=== PATIENT | female | born 1995 | race Caucasian/White ===

== ENCOUNTER 2022-09-24 12:07 | Emergency (ER) | payer OTHER, SELFPAY ==
[2022-09-24 12:17] VITALS: BP 117/70; PULSE 83; RESP 16; TEMP 36.6; O2SAT 100
--- NOTE | 2022-09-24 12:27 | ED.EAR ---
HPI - Ear Problem General Chief complaint: Ear Stated complaint: Bilateral Ear Irritation Source: patient Mode of arrival: ambulatory Limitations: no limitations History of Present Illness HPI Narrative: 27-year-old female presents to [facility] with complaints of bilateral ear pain, right is worse than left for the past 6 days. Patient reports that she then started with a headache and worsening ear pain through the night. Patient reports that she has been taking [id number] Excedrin and using a heating pad which has been helping her symptoms. Patient denies fever, body aches, chills, nausea, vomiting or diarrhea. MD Complaint: ear pain Location: bilateral Relieving factors: NDAIDs Exacerbating factors: nothing Discharge from ear: Reports no Treatment prior to arrival: none Related Data Home Medications Medication Instructions Recorded Confirmed acyclovir 400 mg tablet 400 mg PO BID 09/24/22 09/24/22 escitalopram oxalate 10 mg tablet 10 mg PO DAILY 09/24/22 09/24/22 Allergies Allergy/AdvReac Type Severity Reaction Status Date / Time No Known Allergies Allergy Verified 09/24/22 12:13 Review of Systems Constitutional: Constitutional: Denies chills, Denies fatigue, Denies fever(s) and Denies weakness ENT: Denies vertigo, Denies dizziness, Denies epistaxis, Denies nasal congestion and Denies sore throat Comments: Bilateral ear pain Cardiovascular: Cardiovascular: Denies chest pain Respiratory: Respiratory: Denies cough, Denies dyspnea and Denies wheezing Gastrointestinal: Gastrointestinal: Denies diarrhea, Denies nausea and Denies vomiting Integumentary/Breasts: Skin/Breast: Denies pruritus, Denies erythema and Denies rash Neurologic: Denies dizziness, Denies syncope and Denies headache(s) PMFSH Comments At time of signature, I agree with nursing past medical, surgical, social and family history. There is no relevant family history pertinent to the presenting complaint. Exam Const: General: healthy appearing Nutritional Appearance: well nourished Orientation/consciousness: patient oriented x3 HENMT: Head: normal to inspection Ears: external ears normal, TM's normal bilaterally and Abnormal EAC present erythema bilateral (Right is worse than left) and edema bilateral (Right is worse than left); no cerumen impaction, no excessive cerumen and no foreign body Face/Nose/Sinus: Normal external nose present Mouth: Yes Normal oral and palatal mucosa present and Yes moist mucous membranes Teeth and gingiva: dentition normal Throat: posterior oropharynx normal and uvula midline Eyes: Conjunctivae: conjunctivae normal Neck: Neck: normal visual inspection Resp: Effort & Inspection: normal respiratory effort and not labored Auscultation: clear to auscultation bilaterally, no crackles, no rales and no rhonchi Cardio: Rate: regular rate Rhythm: regular rhythm Heart sounds: no murmurs Skin: General skin exam: normal color Rashes: no rashes Neuro: Speech: normal speech Gait exam (Neuro): Normal gait present Psych: Affect: normal affect Attitude: cooperative Course Course Level of Care: Express Care Visit Vital Signs Vital signs: Vital Signs Temperature 36.6 C 09/24/22 12:17 Pulse Rate 83 09/24/22 12:17 Respiratory Rate 16 09/24/22 12:17 Blood Pressure 117/70 09/24/22 12:17 Pulse Oximetry 100 09/24/22 12:17 Oxygen Delivery Room Air 09/24/22 12:17 Temperature 36.6 C 09/24/22 12:17 Pulse Rate 83 09/24/22 12:17 Respiratory Rate 16 09/24/22 12:17 Blood Pressure 117/70 09/24/22 12:17 Pulse Oximetry 100 09/24/22 12:17 Oxygen Delivery Room Air 09/24/22 12:17 Medical Decision Making MDM Narrative Medical decision making narrative: Encourage patient also Motrin and Tylenol as needed for pain. Educated patient to use antibiotic ear drops as prescribed and keep ears clean and dry. Instructed patient to follow-up with primary care provider if s
== END 2022-09-24 12:32 | disposition home or self-care (01) ==
PROVIDERS: Emergency Provider Nurse Practitioner Family; PCP Family Medicine
DX: H60.503 Unspecified acute noninfective otitis externa, bilateral (principal); F41.9 Anxiety disorder, unspecified; F32.A Depression, unspecified; Z86.16 Personal history of COVID-19
CPT/HCPCS: 99213; G0463

== ENCOUNTER 2022-09-29 13:04 | Emergency (ER) | payer OTHER, SELFPAY ==
--- NOTE | 2022-09-29 13:07 | ED.URI ---
HPI - URI/Sore Throat General Chief Complaint: Ear Stated Complaint: EARACHE S/P DOUBLE EAR INFECTIONS/SINUS HEADACHE Time Seen by Provider: 09/29/22 13:06 Source: patient Mode of arrival: ambulatory Limitations: no limitations History of Present Illness HPI Narrative: Patient is a 27-year-old female who presents with bilateral ear pain and sinus pain since 09/18. Patient was seen at Urgent Care 09/24 and diagnosed with otitis externa. Patient has been doing ear drops daily. Patient reports ear pain and sinus pressure have just increased. Patient has not taken any other [id number] medication for symptoms. Denies fever, chills, nausea, vomiting, diarrhea, cough. Patient states she has history of strep throat and ear infections. Related Data Home Medications Medication Instructions Recorded Confirmed acyclovir 400 mg tablet 400 mg PO BID 09/24/22 09/29/22 escitalopram oxalate 10 mg tablet 2.5 mg PO DAILY 09/24/22 09/29/22 Allergies Allergy/AdvReac Type Severity Reaction Status Date / Time No Known Allergies Allergy Verified 09/29/22 13:29 Review of Systems Review of Systems: All systems reviewed & are unremarkable except as noted in HPI and below Constitutional: Constitutional: Denies body ache(s), Denies chills, Denies fatigue, Denies fever(s), Denies headache(s), Denies malaise and Denies weakness Eyes: Eyes: Denies blurry vision, Denies irritation and Denies loss of vision ENT: Reports otalgia, Denies headache(s), Denies nasal discharge, Reports sinus pain and Denies sore throat Cardiovascular: Cardiovascular: Denies chest pain, Denies irregular heart rhythm and Denies dyspnea Respiratory: Respiratory: Denies dyspnea Gastrointestinal: Gastrointestinal: Denies abdominal pain, Denies melena, Denies hematochezia, Denies diarrhea, Denies nausea and Denies vomiting Musculoskeletal: Musculoskeletal: Denies back pain, Denies myalgias and Denies arthralgias Integumentary/Breasts: Skin/Breast: Denies pruritus and Denies rash Neurologic: Denies headache(s), Denies loss of vision and Denies weakness Psychiatric: Psychiatric: Reports no additional psychiatric complaints Endocrine: Endocrine: Denies fatigue PMFSH Comments At time of signature, agree with nursing past medical, surgical, social and family history. There is no relevant family history pertinent to the presenting complaint. Exam Const: General: cooperative, healthy appearing, comfortable, no acute distress and well nourished Nutritional Appearance: well nourished Orientation/consciousness: patient oriented x3 Limitations: no limitations HENMT: Head: normal to inspection, normocephalic and atraumatic Ears: hearing grossly normal bilaterally, external ears normal, TM's normal bilaterally and EAC's normal Face/Nose/Sinus: Normal external nose present, normal facial exam and face symmetric Face and sinus: normal facial exam, face symmetric and sinus tenderness frontal and maxillary Mouth: Yes lip normal Throat: posterior oropharynx normal, tonsils normal and uvula midline Eyes: General: appearance normal, both eyes and all related structures Alignment and Position: alignment normal and position normal Periorbital: periorbital findings normal Eyelids: eyelids normal Pupils: Equal, round and reactive pupils present EOM: EOMs intact bilaterally Neck: Neck: normal visual inspection, full ROM and supple Chest: Chest palpation & inspection: normal inspection of the chest Resp: Effort & Inspection: normal respiratory effort and able to speak in complete sentences Auscultation: clear to auscultation bilaterally Cardio: Rate: regular rate Rhythm: regular rhythm Heart sounds: S1 normal heart sound present and S2 normal heart sound present GI: Inspection: normal to inspection Skin: General skin exam: normal color and no rashes or lesions noted Neuro: General: patient oriented x3 and moves all extremities Cranial nerves: Yes Equal, round and reac
[2022-09-29 13:16] VITALS: BP 114/75; PULSE 94; RESP 18; TEMP 36.6; O2SAT 100
== END 2022-09-29 14:18 | disposition home or self-care (01) ==
PROVIDERS: Emergency Provider Nurse Practitioner Family; PCP Family Medicine
DX: J01.10 Acute frontal sinusitis, unspecified (principal); Z86.16 Personal history of COVID-19; F41.9 Anxiety disorder, unspecified; F32.A Depression, unspecified
CPT/HCPCS: 99213; G0463

== ENCOUNTER 2024-02-15 09:31 | Emergency (ER) | payer BC, SELFPAY ==
--- NOTE | 2024-02-15 09:34 | ED_ITS ---
HPI - URI/Sore Throat General Chief Complaint: Upper Respiratory Infection Stated Complaint: Cough / blister on toe Time Seen by Provider: 02/15/24 09:33 Source: patient Mode of arrival: ambulatory Limitations: no limitations History of Present Illness HPI Narrative: Ericka is a 28-year-old female patient presenting to the clinic today with complaints of a cough x2 weeks and a blister on her toe as she just noticed last 1-2 days. She reports cough is nonproductive, mild shortness breath, and she has some burning in her chest. Burning is worse with the cough/taking deep breaths. Daughter was diagnosed with walking pneumonia 2 weeks ago. She denies any known fever but has had headache but is not currently complaining of a headache. Has taken Tylenol/Motrin as needed for pain. Has not taken any cough medicine. She is a nonsmoker. No history of asthma or COPD. Denies any URI symptoms. MD elicited complaint: cough and other (Blister on foot) Related Data Home Medications ?Medication ?Instructions ?Recorded ?Confirmed ?Last Taken ?Type acyclovir 400 mg tablet 400 mg PO BID 09/24/22 09/29/22 Unknown History escitalopram oxalate 10 mg tablet 2.5 mg PO DAILY 09/24/22 09/29/22 Unknown History Allergies Allergy/AdvReac Type Severity Reaction Status Date / Time No Known Allergies Allergy Verified 02/15/24 09:43 Review of Systems Review of Systems: Pertinent positives per HPI. Patient denies any fever, chills, rash, headache, visual changes, dizziness, runny nose, sore throat, shortness of breath, palpitations, nausea, vomiting, diarrhea, constipation, abdominal pain, or any urinary issues. PMFSH Comments At the time of my signature, I reviewed and agree with the nursing past medical, surgical, social, and family history. There is no relevant family history pertinent to the patient complaint. Exam Narrative: General: Well-developed, obese, in no apparent distress Head: Normocephalic, atraumatic Eyes: Pupils equally round and reactive to light bilaterally, EOM intact, sclera and conjunctive clear, no discharge, lids normal Ears: TMs intact and clear, ear canals clear, no drainage, grossly hearing normal. Nose: Nares patent, no discharge, no inflammation, no sinus tenderness. Mouth: Oral pharynx without lesions or masses, good dentition, MMM. Neck: Supple, trachea midline, no enlargement of anterior or posterior cervical nodes, no thyroid masses or goiter palpable. Cardio: Regular rate and rhythm, s1 and s2 normal, no murmur appreciated. Resp: Slightly diminished in the bases otherwise clear, no rhonchi, rales, wheezing or rubs Integumentary: [place], warm, and dry, plantar wart to the right distal midfoot- proximal to the 3rd toe Course Course Emergency Course: Portions of this record may have been created with voice recognition software. Level of Care: Express Care Visit Vital Signs Vital signs: Vital Signs Temperature 36.3 C L 02/15/24 09:42 Pulse Rate 81 02/15/24 09:42 Respiratory Rate 18 02/15/24 09:42 Blood Pressure 126/78 02/15/24 09:42 Pulse Oximetry 100 02/15/24 09:42 Oxygen Delivery Room Air 02/15/24 09:42 Temperature 36.3 C L 02/15/24 09:42 Pulse Rate 81 02/15/24 09:42 Respiratory Rate 18 02/15/24 09:42 Blood Pressure 126/78 02/15/24 09:42 Pulse Oximetry 100 02/15/24 09:42 Oxygen Delivery Room Air 02/15/24 09:42 Vital signs reviewed MDM - URI/Sore Throat MDM Narrative Medical decision making narrative: At the time of visit patient is resting comfortably on the exam table. Patient appears to be nontoxic. Plan:Wells criteria 0. Patient has had exposure to walking pneumonia. Patient reports cough, mild shortness of breath, and chest discomfort with breathing. No obvious adventitious lung sounds. Oxygen saturations 100% on room air. Will treat for a walking pneumonia/pleurisy and placed on doxycycline, albuterol inhaler, and prednisone. Recommend PCP or Podiatry evaluation for plantar wart to the right foot. Supportive measures were discussed with the patient and they voiced understanding discharge instructions and agrees to treatment plan. Return precautions reviewed Differential Diagnosis Differential diagnosis: Likely upper respiratory infection, otitis media, sinusitis, viral infection, bronchitis, influenza, pharyngitis and other (COVID) Discharge Plan Discharge Clinical Impression: Acute lower respiratory tract infection, Plantar wart of right foot Patient Disposition: Home, Self-Care Condition: Stable Instructions: Antibiotic Form, Plantar Wart (ED), Pneumonia (ED) Additional Instructions: Take prescription medications only as prescribed-doxycycline, prednisone, and albuterol inhaler Increase fluids and stay well hydrated Tylenol/motrin for pain/fever Flonase and OTC antihistamines as directed Vicks vapor rub to open sinuses Sinus rinses for congestion Cepacol spray, cough drops, throat lozenges, warm tea with honey/lemon, gargle salt water to soothe throat BRAT diet for diarrhea Clear liquids x 24 hours then advance as tolerated for nausea/vomiting Go to the ED if you develop a worsening in your condition- high fever not controlled by Tylenol or Motrin, dehydration, weakness, lethargy, shortness of breath, or chest pain. Follow up with your PCP in 3-5 days if symptoms persist. Follow-up with your PCP or insole presser for your plantar wart Patient Language: Rwandan Prescriptions: New doxycycline hyclate 100 mg capsule 100 mg PO BID 7 Days Qty: 14 0RF prednisone 20 mg tablet 40 mg PO DAILY 5 Days Qty: 10 0RF albuterol sulfate 90 mcg/actuation HFA aerosol inhaler 2 puff inhalation Q4-6H PRN (Reason: shortness of breath or wheezing) 30 Days Qty: 8.5 0RF No Action acyclovir 400 mg tablet 400 mg PO BID escitalopram oxalate 10 mg tablet 2.5 mg PO DAILY Follow-up/Referrals: UNKNOWN,DOCTOR [Primary Care Provider] - Time of Disposition: 09:52 Quality NIHSS Nursing Documentation ED NIHSS nursing documentation: reviewed/agree
[2024-02-15 09:42] VITALS: BP 126/78; PULSE 81; RESP 18; TEMP 36.3; O2SAT 100
== END 2024-02-15 09:58 | disposition home or self-care (01) ==
PROVIDERS: Emergency Provider Nurse Practitioner Family
DX: J22 Unspecified acute lower respiratory infection (principal); B07.0 Plantar wart
CPT/HCPCS: 99213; G0463

== ENCOUNTER 2024-03-21 16:57 | Emergency (ER) | payer BC, MEDICAID, SELFPAY ==
--- NOTE | ~2024-03-21 | XR_ITS ---
CHEST RADIOGRAPH, PA AND LATERAL CLINICAL HISTORY: cough,productive . COMPARISON: None available TECHNIQUE: PA and lateral views of the chest. FINDINGS The cardiomediastinal silhouette is unremarkable. The lungs are clear. Visualized osseous structures and soft tissues are unremarkable. IMPRESSION: No focal infiltrate or effusion. Reviewed, dictated and finalized at location A. FACTURING PROJECT ENGINEER
--- OUTSIDE RECORDS SUMMARY | 2024-03-21 17:00 | XMS_ITS | Encounter Summary ---
Author Organization [facility] Address [address] [place] [address] Care Team Providers Care Disc Pad Knockout Worker Name Role Phone Sandra Zuniga MD Primary Care Provider [phone] Phuong Dunne NP Primary Care Provider [phone] Encounter Details Date Type Department Care Team (Late st Contact Info) Description 07/04/2023 Poken Message Enc [facility] Medical Group Family & Internal Medicine [facility] [id number] [place] [phone] Phuong Dunne NP [address] [place] [address] Ear irrigation Social History Tobacco Use Types Packs/Day Years Used Date Smoking Tobacco: Never Smokeless Tobacco: Never Alcohol Use Standard Drinks/Week Comments Yes 0 (1 standard drink = 0.6 oz pur e alcohol) A few drinks every few months PHQ-2 Answer Date Recorded Patient Health Questionnaire-2 Score 0 04/12/2023 Comments No Sex and Gender Information Value Date Recorded Sex Assigned at Female 03/17/2024 8:21 AM HEAVY EQUIPMENT FIELD MECHANIC Legal Sex Female 7:14 PM CDT Gender Identity Not on file Sexual Orientation Not on file documented as of this encounter Plan of Treatment Not on file documented as of this encounter Visit Diagnoses Not on filedocumented in this encounter Additional Health Concerns Infection Onset Date Last Indicated Resolved Time COVID-19 Rule Out 03/03/2024 03/03/2024 03/03/2024 4:32 PM HEAVY EQUIPMENT FIELD MECHANIC Influenza - Seasonal 03/03/2024 03/03/2024 025 12:32 AM HEAVY EQUIPMENT FIELD MECHANIC COVID-19 Rule Out 03/17/2024 03/17/2024 03/17/2024 9:13 AM HEAVY EQUIPMENT FIELD MECHANIC Assessment Noted Time PHQ-9 Depression Total Score: 7 09/05/19 3:09 PM CDT documented as of this encounter Care Teams Disc Pad Knockout Worker Relationship Specialty [place] [id number] [place] [address] PCP - General FAMILY PRACTICE 01/14/21 10/04/23 [place] [address] [place] [address] PCP - General Nurse Practitioner Family 10/05/23 documented as of this encounter
--- OUTSIDE RECORDS SUMMARY | 2024-03-21 17:00 | XMS_ITS | Encounter Summary ---
Author Organization [facility] Address [address] [place] [address] Care Team Providers Care Crack Off Person Name Role Phone Sandra Zuniga MD Primary Care Provider [phone] Phuong Dunne NP Primary Care Provider [phone] Encounter Details Date Type Department Care Team (Late st Contact Info) Description 06/14/2023 [employer] Message Enc [facility] Medical Group Family & Internal Medicine [facility] [address] [place] [address] Ashley Roa, CLINICAL TRIALS NURSE [address] [address] Strep culture Social History Tobacco Use Types Packs/Day Years Used Date Smoking Tobacco: Never Smokeless Tobacco: Never Alcohol Use Standard Drinks/Week Comments Yes 0 (1 standard drink = 0.6 oz pur e alcohol) A few drinks every few months PHQ-2 Answer Date Recorded Patient Health Questionnaire-2 Score 0 04/12/2023 Comments No Sex and Gender Information Value Date Recorded Sex Assigned at Female 03/17/2024 8:21 AM SCRAP SEPARATOR Legal Sex Female 7:14 PM CDT Gender Identity Not on file Sexual Orientation Not on file documented as of this encounter Plan of Treatment Not on file documented as of this encounter Visit Diagnoses Not on filedocumented in this encounter Additional Health Concerns Infection Onset Date Last Indicated Resolved Time COVID-19 Rule Out 03/03/2024 03/03/2024 03/03/2024 4:32 PM SCRAP SEPARATOR Influenza - Seasonal 03/03/2024 03/03/2024 025 12:32 AM SCRAP SEPARATOR COVID-19 Rule Out 03/17/2024 03/17/2024 03/17/2024 9:13 AM SCRAP SEPARATOR Assessment Noted Time PHQ-9 Depression Total Score: 7 09/05/19 3:09 PM CDT documented as of this encounter Care Teams Crack Off Person Relationship Specialty [place] [address] [place] [address] PCP - General FAMILY PRACTICE 01/14/21 10/04/23 [place] [address] [address] PCP - General Nurse Practitioner Family 10/05/23 documented as of this encounter
--- OUTSIDE RECORDS SUMMARY | 2024-03-21 17:00 | XMS_ITS | Encounter Summary ---
Author Organization [facility] Address [address] [place] [address] Care Team Providers Care Foreign Banknote Teller Name Role Phone Sandra Zuniga MD Primary Care Provider [phone] Phuong Dunne NP Primary Care Provider [phone] Encounter Details Date Type Department Care Team (Late st Contact Info) Description 06/19/2022 Border[employer] Message Enc [facility] Medical Group Family & Internal Medicine [facility] [id number] [place] [phone] Sandra Zuniga MD [address] [place] [address]. [address] [place] [address] Headaches Social History Tobacco Use Types Packs/Day Years Used Date Smoking Tobacco: Never Smokeless Tobacco: Never Alcohol Use Standard Drinks/Week Comments Yes 0 (1 standard drink = 0.6 oz pur e alcohol) once per month per patient. PHQ-2 Answer Date Recorded Patient Health Questionnaire-2 Score 0 02/09/2022 Comments No Sex and Gender Information Value Date Recorded Sex Assigned at Female 03/17/2024 8:21 AM CORONARY CLINICAL SPECIALIST Legal Sex Female 7:14 PM CDT Gender Identity Not on file Sexual Orientation Not on file documented as of this encounter Plan of Treatment Not on file documented as of this encounter Visit Diagnoses Not on filedocumented in this encounter Additional Health Concerns Infection Onset Date Last Indicated Resolved Time COVID-19 Rule Out 03/03/2024 03/03/2024 03/03/2024 4:32 PM CORONARY CLINICAL SPECIALIST Influenza - Seasonal 03/03/2024 03/03/2024 025 12:32 AM CORONARY CLINICAL SPECIALIST COVID-19 Rule Out 03/17/2024 03/17/2024 03/17/2024 9:13 AM CORONARY CLINICAL SPECIALIST Assessment Noted Time PHQ-9 Depression Total Score: 2 02/23/19 11:36 AM CORONARY CLINICAL SPECIALIST documented as of this encounter Care Teams Foreign Banknote Teller Relationship Specialty [place] [address] [place] [address] PCP - General FAMILY PRACTICE 01/14/21 10/04/23 [place] [address] [place] [address] PCP - General Nurse Practitioner Family 10/05/23 documented as of this encounter
--- OUTSIDE RECORDS SUMMARY | 2024-03-21 17:00 | XMS_ITS | Clinical Summary ---
Author Organization [facility] Address [address] [place] [address] Care Team Providers Care Physical Therapy Asst Name Role Phone Phuong Dunne NP Primary Care Provider + [phone] Allergies No known active allergies Medications valACYclovir (VALTREX) 1 g tablet 08/02/2023 Active escitalopram (LEXAPRO) 10 MG tabletIndicatio ns:Other depression Take 1 tablet (10 mg total) by mouth daily. 90 tablet 3 10/11/2023 Active propranolol (INDERAL) 20 MG tabletIndicatio ns:Anxiety Take 1 tablet (20 mg total) by mouth 3 (three) times daily. 90 tablet 11/29/2023 Active albuterol sulfate HFA 108 (90 Base) MCG/ACT inhaler Inhale 2 puffs into the lungs every 4 (four) hours as needed. 02/15/2024 Active fluticasone propionate (FLONASE) 50 MCG/ACT nasal sprayIndication s:Viral URI 2 sprays by Nasal route daily for 30 days. 2 puffs each nostril twice a day for 3 days, then 2 puffs each nostril daily 18.2 mL 1 03/17/2024 04/17/19 25 Active oseltamivir (TAMIFLU) 75 MG capsuleIndicati ons:Influenza A Take 1 capsule (75 mg total) by mouth 2 (two) times daily for 5 days. 10 capsule 03/03/2024 03/08/19 25 Active Problems Problem Noted Date Diagnosed Date Genital herpes simplex, unspecified site 024 History of cardiac radiofrequency ablation (RFA) 10/17/2023 Intractable episodic tension-type headache 10/12 History of supraventricular tachycardia 05/01/19 18 Obesity (BMI 30.0-34.9) 04/30/2017 Anxiety with depression 03/19/2017 Dysmenorrhea 01/21/2016 PMS (premenstrual syndrome) 01/21/2016 Anxiety 01/01/2015 Migraine headache 01/01/2015 SVT (supraventricular tachycardia) ([facility]) 07/21/2010 Resolved Problems Problem Noted Date Diagnosed Date Resolved Date Encounter for preventive health examination 01/01/2015 04/16/2023 Encounter to establish care with new doctor 01/01/2015 04/16/2023 Encounters Date Type Department Care Team Description 03/17/2024 10:20 AM ACCOUNT RECEIVABLE CLERK Office Visit [facility] [address] [phone] Adelso Hurt PA URI/ENT Symptoms (Pt c/o JAQUAN ear pain with right worse, sinus drainage and congestion, cough. Pt symptoms started Sat and is just getting over the flu from 03/03) 03/17/2024 Travel 03/03/2024 4:00 PM ACCOUNT RECEIVABLE CLERK Office Visit [facility] [address] [phone] Leela Arambula PA Sore Throat (Headache, coughing, body aches, chills/sweats-x 2-3 days) 03/03/2024 Travel from Last 3 Months Immunizations Name Administration Dates Next Due Dtap (Acel-Immune) 07/29/2001, 8,1996,1996,1996 Dtap (Generic) 07/29/2001, 8,1996,1996,1996 Fluzone Adult - >Age 3 (Pref illed Syringe) 01/14/2021(Deferred: Patient Refused) Hepatitis B Pediatric 1996,1996,03/1996 Hib Vaccine, Prp-D 12/16/1997, 7,1996,1996 MMR (Generic) 07/29/2001,07/02/1997 Opv 07/29/2001, 8,1996,1996,1996 Td (Tenivac) preservative free 1996 Varicella Vaccine 06/04/2001 Family History Medical History Relation Comments Alcohol Abuse Father Hypertension Father Mental Health Father Neurological Disease Mother Occipital N euralgia Relation Status Comments Father Alive Mother Alive Social History Tobacco Use Types Packs/Day Years Used Date Smoking Tobacco: Never Smokeless Tobacco: Never Tobacco Cessation:Counseling Given: No Alcohol Use Standard Drinks/Week Comments Yes 0 (1 standard drink = 0.6 oz pur e alcohol) A few drinks every few months PHQ-2 Answer Date Recorded Patient Health Questionnaire-2 Score 0 03/03/2024 Comments No Sex and Gender Information Value Date Recorded Sex Assigned at Female 03/17/2024 8:21 AM ACCOUNT RECEIVABLE CLERK Legal Sex Female 7:14 PM CDT Gender Identity Not on file Sexual Orientation Not on file Last Filed Vital Signs Vital Sign Reading Time Taken Comments Blood Pressure 125/89 03/17/2024 8:45 AM ACCOUNT RECEIVABLE CLERK Pulse 96 03/17/2024 8:45 AM ACCOUNT RECEIVABLE CLERK Temperature 36.9 C (98.5 F) 03/17/2024 8:45 AM ACCOUNT RECEIVABLE CLERK Respiratory Rate 18 03/17/2024 8:45 AM ACCOUNT RECEIVABLE CLERK Oxygen Saturation 100% 03/17/2024 8:45 AM ACCOUNT RECEIVABLE CLERK Inhaled Oxygen Concentration - - Weight 93 kg (205 lb) 03/17/2024 8:45 AM ACCOUNT RECEIVABLE CLERK Height 157.5 cm (5' 2 ) 03/17/2024 8:45 AM ACCOUNT RECEIVABLE CLERK Body Mass Index 37.49 03/17/2024 8:45 AM ACCOUNT RECEIVABLE CLERK Plan of Treatment Health Maintenance Due Date Last Done Comments DTaP, Tdap and Td Vaccines (6 - Tdap) 06/14/2007 07/29/2001, 07/29/2001, 12/16/1997, Additional history exists Cervical Cancer Screening Pap Smear (Age 21 to 29) Every 3 Years 10/17/2020 10/17/2017 Annual Physical 03/05/2021 03/05/2020 COVID-19 Vaccine ( season) 2023 Influenza Adult (#1) 2023 Cervical Cancer Screening 08/11/2025 Po stponed from 10/17/2020 (Going to Outside Clinic) Hepatitis B Vaccines Completed 1996, 1996, 1996 Hepatitis C Completed 01/19/2016 Chlamydia Screening Females ages 16-24 Discontinued 10/17/2017 PHQ-2 (Physician Nathrop) Completed 03/03/2024 HPV Vaccines Aged Out No longer eligi ble based on patient's age to complete this topic Meningococcal B Vaccine Aged Out No l onger eligible based on patient's age to complete this topic Meningococcal Vaccine Aged Out No hafsa aristides eligible based on patient's age to complete this topic Pneumococcal Vaccine: Pediatrics (0 to 5 Years) and At-Risk Patients (6 to 64 Years) Aged Out No longer eligible based on patient's age to complete this topic RSV Immunizations Under 20 Months Aged Out No longer eligible based on patient's age to complete this topic Procedures Procedure Name Priority Date/Time Associated Diagnosis Comments CULTURE STREP A Routine 03/17/2024 9:05 AM ACCOUNT RECEIVABLE CLERK Sore throat CORONAVIRUS (COVID-19) INFLUENZA A & B ANTIGEN IA PANEL Routine 03/17/2024 Suspected COVID-19 virus infection STREP A RAPID Routine 03/17/2024 Sore throat STREP A RAPID Routine 03/03/2024 Sore throat CORONAVIRUS (COVID-19) INFLUENZA A & B ANTIGEN IA PANEL Routine 03/03/2024 Suspected COVID-19 virus infection from Last 3 Months Results * CULTURE STREP A (03/17/2024 9:05 AM ACCOUNT RECEIVABLE CLERK) THROAT CULTURE GROUP A STREP [facility] [place] Comment: CULTURE, THROAT, SPECIAL W/GRP A STREP SUSCEPT. Micro Number: [id number] Test Status: Final Specimen Source: Not given Specimen Quality: Adequate Result: No oropharyngeal pathogens recovered. STRUCTURE OF ANTERIOR PORTION OF NECK / Unknown 03/17/2024 9:05 AM ACCOUNT RECEIVABLE CLERK 03/18/2024 1:42 AM ACCOUNT RECEIVABLE CLERK Narrative Resulting Agency Comment Performing Organization Information: Site ID: [email or web address] Name: [email or web address] Address: [address] [place] [address] Director: Arline Gonzalez Adelso [facility] MICROBIOLOG[facility] - GENERAL ORDERAB LES Final Result [facility] [place], [place] [address] [place] [address], * CORONAVIRUS (COVID-19) INFLUENZA A & B ANTIGEN IA PANEL (03/17/2024) Only the most recent of2 resultswithin the time period is included. CORONAVIRUS ANTIGEN IA NEGATIVE NEGATIVE [id number], [place] INFLUENZA A NEGATIVE NEGATIVE [id number], [place] INFLUENZA B NEGATIVE NEGATIVE [id number] Internal Control: VALID VALID [id number], [place] NASAL STRUCTURE / Unknown 03/17/2024 us Adelso [facility] MICROBIOLOGY - GENERAL ORDERAB LES Final Result Performing Organization Address City/[facility]/ZIP Co de Phone Number [phone], [place] [address] [place] [address], * STREP A RAPID (03/17/2024) Only the most recent of2 resultswithin the time period is included. RAPID STREP TEST NEGATIVE NEGATIVE [id number], [place] Internal Control: VALID VALID [id number] STRUCTURE OF ANTERIOR PORTION OF NECK / Unknown 03/17/2024 Adelso [facility] MICROBIOLOGY - GENERAL ORDERAB LES Final Result [id number], [place] [address] [place] [address], from Last 3 Months Insurance [facility] Care Teams Physical Therapy Asst Relationship Specialty [place] [address] [place] [address] PCP - General Nurse Practitioner Family 10/05/23
--- OUTSIDE RECORDS SUMMARY | 2024-03-21 17:00 | XMS_ITS | Encounter Summary ---
Author Organization [facility] Address [address] [place] [address] Care Team Providers Care Patient Registration Clerk Name Role Phone Tonia Cross DROP WIRE BUILDER Primary Care Provider Sandra Carvalho MD Primary Care Provider [phone] Phuong Dunne DROP WIRE BUILDER Primary Care Provider + [phone] Encounter Details Date Type Department Care Team (Late st Contact Info) Description 10/27/2020 NowThis News Message [facility] Patient Accounts [address] [place] [address] [facility] Provider Financial Assistance Application Social History Tobacco Use Types Packs/Day Years Used Date Smoking Tobacco: Never Smokeless Tobacco: Never Alcohol Use Standard Drinks/Week Comments Yes 0 (1 standard drink = 0.6 oz pur e alcohol) once per month per patient. PHQ-2 Answer Date Recorded PHQ-2 Score - If the patient scores above 3, please move on to questions 3-9 1 03/05/2020 Comments No Sex and Gender Information Value Date Recorded Sex Assigned at Female 03/17/2024 8:21 AM VEHICLE REFINISHER Legal Sex Female 7:14 PM CDT Gender Identity Not on file Sexual Orientation Not on file documented as of this encounter Plan of Treatment Not on file documented as of this encounter Visit Diagnoses Not on filedocumented in this encounter Additional Health Concerns Infection Onset Date Last Indicated Resolved Time COVID-19 Rule Out 03/03/2024 03/03/2024 03/03/2024 4:32 PM VEHICLE REFINISHER Influenza - Seasonal 03/03/2024 03/03/2024 025 12:32 AM VEHICLE REFINISHER COVID-19 Rule Out 03/17/2024 03/17/2024 03/17/2024 9:13 AM VEHICLE REFINISHER documented as of this encounter Care Teams Patient Registration Clerk Relationship Specialty Start Date End Date Tonia Cross NP PCP - General NURSE PRACTITIONER 03/05/20 01/13/21 [place] [address] [place] [address] PCP - General FAMILY PRACTICE 01/14/21 10/04/23 [place] [address] [address] [place] [address] PCP - General Nurse Practitioner Family 10/05/23 documented as of this encounter
--- OUTSIDE RECORDS SUMMARY | 2024-03-21 17:00 | XMS_ITS | Clinical Summary ---
Author Organization [employer] [address] [place] [address] [place] [phone] Care Team Providers Care Plasma Processing Centrifuge Operator Name Role Phone Fercho Gomez DO Primary Care Provider [phone] Allergies No known active allergies Medications escitalopram oxalate (LEXAPRO) 10 mg tabletIndication s:Anxiety with depression Take 1 tab by mouth daily 90 Tablet 3 04/02/2019 Active Active Problems Problem Noted Date Diagnosed Date History of supraventricular tachycardia 05/01/19 18 Obesity (BMI 30.0-34.9) 04/30/2017 Anxiety with depression 03/19/2017 Immunizations Immunization Administration Dates Next Due (INFANRIX)(6 WKS-6 YRS) DIPT HERIA, TETANUS TOXOIDS, AND ACCELLULAR PERTUSSIS VACCINE (DTAP), 0.5 ML IM 07/29/2001,12/16/1997,1996,10/24,1996 (M-M-R II/PRIORIX)(12 MO UP) MEASLES, MUMPS AND RUBELLA VIRUS VACCINE, 0.5 ML IM/SUBCUT 07/29/2001,07/02/1997 (RECOMBIVAX HB/ENGERIX-B)(0- 19 YRS) HEPATITIS B VACCINE 5 MCG/0.5 ML OR 10 MCG/0.5 ML PED OR ADOL 3 DOSE (PF), IM 1996,1996,1996 (VARIVAX)(12 MOS UP)VARICELL A VIRUS VACCINE (PF) 0.5 ML, SUB CUT 06/04/2001 Hemophilus influenza b vacci ne (Hib), PRP-D conjugate, for booster use only, intramuscular use 12/16/1997,1996,1996,08/14 Poliovirus Vaccine Live Oral 07/29/2001, 12/16/1997,1996,10/24,1996 Family History Medical History Relation Name Comments Depression Father Hypertension Father Migraines Mother Relation Name Status Comments Father Alive Mother Alive Social History Tobacco Use Types Packs/Day Years Used Date Smoking Tobacco: Never Smokeless Tobacco: Never Alcohol Use Standard Drinks/Week Comments No 0 (1 standard drink = 0.6 oz pur e alcohol) Comments No Sex and Gender Information Value Date Recorded Sex Assigned at Not on file Legal Sex Female 1:58 PM SENIOR DATA MINING ANALYST Gender Identity Not on file Sexual Orientation Not on file Last Filed Vital Signs Vital Sign Reading Time Taken Comments Blood Pressure 112/64 04/02/2019 10:29 AM SENIOR DATA MINING ANALYST Pulse 85 04/02/2019 10:29 AM SENIOR DATA MINING ANALYST Temperature 36.2 C (97.2 F) 04/02/2019 10:29 AM SENIOR DATA MINING ANALYST Respiratory Rate - - Oxygen Saturation 99% 04/02/2019 10:29 AM SENIOR DATA MINING ANALYST Inhaled Oxygen Concentration - - Weight 78.9 kg (174 lb) 04/02/2019 10:29 AM SENIOR DATA MINING ANALYST Height 157.5 cm (5' 2 ) 04/02/2019 10:29 AM SENIOR DATA MINING ANALYST Body Mass Index 31.83 04/02/2019 10:29 AM SENIOR DATA MINING ANALYST Plan of Treatment Health Maintenance Due Date Last Done Comments DTAP/TDAP/TD VACCINES (6 - Tdap) 06/14/2007 07/29/2001, 12/16/1997, 1996, Additional history exists CERVICAL CANCER SCREENING 2017 INFLUENZA VACCINE (#1) 2023 04/02/2019 Preventative Visit- Commercial 02/13/2024 04/02/2019, 04/30/2017, 01/22/2017, Additional history exists HEPATITIS B VACCINES Completed 1996, 1996, 1996 HPV VACCINES Aged Out No longer eligi ble based on patient's age to complete this topic Insurance [facility] [employer] HMO Care Teams Plasma Processing Centrifuge Operator Relationship Specialty Start Date End Date Fercho Gomez DO [address] [place] [address] [place] [address] PCP - General Internal Medicine 03/16/17
--- OUTSIDE RECORDS SUMMARY | 2024-03-21 17:00 | XMS_ITS | Referral Summary ---
Author Organization [facility] Address [address] [place] [address] Care Team Providers Care Topology Professor Name Role Phone MigelFercho perez Primary Care Provider [phone] Allergies No known active allergies Medications escitalopram (LEXAPRO) 10 mg tablet Take 1 tablet (10 mg total) by mouth daily 10/19/2021 Active acyclovir (ZOVIRAX) 400 mg tablet Take 1 tablet (400 mg total) by mouth 2 (two) times a day 08/20/2021 Active naproxen (NAPROSYN) 500 mg tabletIndication s:Anti-inflammat ory Take 1 tablet (500 mg total) by mouth 2 (two) times a day with meals 60 tablet 2 11/21/2021 Active Active Problems Problem Noted Date Diagnosed Date Intractable episodic tension-type headache 10/12 Social History Tobacco Use Types Packs/Day Years Used Date Smoking Tobacco: Never Smokeless Tobacco: Never Tobacco Cessation:Counseling Given: Not Answered Alcohol Use Standard Drinks/Week Comments No 0 (1 standard drink = 0.6 oz pur e alcohol) Personal Safety Answer Date Recorded Getting School Help Needed Not on file 04/08 Comments Unknown Sex and Gender Information Value Date Recorded Sex Assigned at Not on file Legal Sex Female 7:24 PM ETHANOL MAINTENANCE MECHANIC Gender Identity Not on file Sexual Orientation Not on file Last Filed Vital Signs Vital Sign Reading Time Taken Comments Blood Pressure 100/70 11/21/2021 10:15 AM CDT Pulse - - Temperature - - Respiratory Rate 16 10/12/2017 11:28 AM CDT Oxygen Saturation - - Inhaled Oxygen Concentration - - Weight 88 kg (194 lb) 12/26/2021 10:21 AM ETHANOL MAINTENANCE MECHANIC Height 157.5 cm (5' 2 ) 12/26/2021 10:21 AM ETHANOL MAINTENANCE MECHANIC Body Mass Index 35.48 12/26/2021 10:21 AM ETHANOL MAINTENANCE MECHANIC Plan of Treatment Not on file Insurance [facility] [employer] [place] Care Teams Topology Professor Relationship Specialty Start Date End Date Fercho Gomez DO PCP - General Internal Medicine 09/12/17
--- OUTSIDE RECORDS SUMMARY | 2024-03-21 17:00 | XMS_ITS | Patient Health Summary ---
Author Organization [facility] Address [address] [address] Care Team Providers Care Vinegar Maker Name Role Phone Mary Alice Garcia MD Primary Care Provider Note from [facility] [place],non-owned Affiliates and Associated Physician Practices is amultiple site organization consisting of ambulatory clinics and hospital sitesin [place], [place], [place] and [place]. This disclosure is being madepursuant to the Care Everywhere program and may not contain all information available regarding this patient. Last updated 17.[facility] Allergies No known active allergies Medications * Be aware that medications may not be up to date on this document. Alwaysverify current medications with the patient. * MV-Min-Fe Fum-FA-DHA ( 1 PO) * escitalopram (LEXAPRO) 10 MG tablet(Started 08/20/2018) TAKE ONE-HALF TABLET BY MOUTH DAILY FOR 2 WEEKS. IF TOLERATING WITHOUT SIDE EFFECTS, INCREASE TO ONE TABLET BY MOUTH DAILY. Active Problems Problem Noted Date Diagnosed Date PMS (premenstrual syndrome) 01/21/2016 Dysmenorrhea 01/21/2016 SVT (supraventricular tachycardia) 07/21/2010 Resolved Problems Problem Noted Date Diagnosed Date Resolved Date Rubella non-immune status, antepartum 10/19/2017 01/30/2018 Immunizations * DTaP VACCINE IM (6wk-6yrs)(Given 07/29/2001, 12/16/1997, 1996, 1996, 1996) * HEP B VACCINE, PED/ADOL(Given 1996, 1996, 1996) * HIB BOOSTER(Given 12/16/1997, 1996, 1996, 1996) * MMR(Given 07/29/2001, 07/02/1997) * POLIO OPV(Given 07/29/2001, 12/16/1997, 1996, 1996, 1996) * VARICELLA(Given 06/04/2001) Social History Tobacco Use Types Packs/Day Years Used Date Smoking Tobacco: Never Smokeless Tobacco: Never Alcohol Use Standard Drinks/Week Comments No 0 (1 standard drink = 0.6 oz pur e alcohol) Sex and Gender Information Value Date Recorded Sex Assigned at Not on file Gender Identity Not on file Sexual Orientation Not on file Last Filed Vital Signs Vital Sign Reading Time Taken Comments Blood Pressure 110/70 12/02/2018 10:58 AM CDT Pulse 77 12/02/2018 10:58 AM CDT Temperature 36.6 C (97.8 F) 12/02/2018 10:58 AM CDT Respiratory Rate 18 12/02/2018 10:58 AM CDT Oxygen Saturation 99% 12/02/2018 10:58 AM CDT Inhaled Oxygen Concentration - - Weight 74.8 kg (165 lb) 07/07/2018 5:00 PM CDT Height 157.5 cm (5' 2 ) 07/07/2018 5:00 PM CDT Body Mass Index 30.18 07/07/2018 5:00 PM CDT Procedures * STREP A SCREEN - POINT OF CARE (AMB) STL(Performed 10/25/2019) Performed for Acute maxillary sinusitis, recurrence not specified * STREP A SCREEN - POINT OF CARE (AMB) STL(Performed 12/02/2018) Performed for Sore throat * STREP A SCREEN - POCT (IP) URGENT CARE(Performed 07/07/2018) Performed for Streptococcal pharyngitis * FIRST TRI NUCHAL TRANSLUCENCY W:SEQ SCREEN(Performed 11/20/2017) Performed for Encounter for supervision of normal first in first trimester (HCC), 6 weeksgestation of (HCC), Screening examination for venereal disease * PROFILE I W/ HBSAG(Performed 10/17/2017) Performed for Encounter for supervision of normal first in first trimester ([facility]), 6 weeksgestation of ([facility]), Screening examination for venereal disease * HIV-1 HIV-2 ANTIGEN/ANTIBODY W RFLX(Performed 10/17/2017) Performed for Encounter for supervision of normal first in first trimester ([facility]), 6 weeksgestation of ([facility]), Screening examination for venereal disease * HEMOGLOBIN ELECTROPHORESIS(Performed 10/17/2017) Performed for Encounter for supervision of normal first in first trimester ([facility]), 6 weeksgestation of ([facility]), Screening examination for venereal disease * CYSTIC FIBROSIS MUTATION PANEL(Performed 10/17/2017) Performed for Encounter for supervision of normal first in first trimester ([facility]), 6 weeksgestation of ([facility]), Screening examination for venereal disease * PAP IG LB CT+NG+TV RFLX HPV ASCU(Performed 10/17/2017) Performed for Encounter for supervision of normal first in first trimester ([facility]), 6 weeksgestation of ([facility]), Screening examination for venereal disease * DRUG ABUSE URINE PANEL 7(Performed 10/17/2017) Performed for Encounter for supervision of normal first in first trimester ([facility]), 6 weeksgestation of ([facility]), Screening examination for venereal disease * CULTURE URINE(Performed 10/17/2017) Performed for Encounter for supervision of normal first in first trimester ([facility]), 6 weeksgestation of ([facility]), Screening examination for venereal disease * HCG URINE QUALITATIVE - POINT OF CARE (AMB) STL(Performed 10/17/2017) Performed for Encounter for supervision of normal first in first trimester ([facility]), 6 weeksgestation of ([facility]), Screening examination for venereal disease * CBC W AUTO DIFFERENTIAL(Performed 03/13/2017) Performed for Pelvic pain * TSH HI LOW REFLEX FREE T4(Performed 03/13/2017) Performed for Pelvic pain * US PELVIS W TRANSVAG NON OB(Performed 03/13/2017) Performed for Pelvic pain * VAGINITIS PLUS (BV CA CT NG TRICH)(Performed 01/22/2017) Performed for Well woman exam, Screening for venereal disease (VD) * STREP A SCREEN - POINT OF CARE (AMB) STL(Performed 01/09/2017) Performed for Strep throat * CHLAMYDIA + GC + TRICH DNA AMPL(Performed 01/19/2016) Performed for Well woman exam with routine gynecological exam, Screening examination for venereal disease * HERPES SIMPLEX 1+2 ANTIBODY IGM IFA(Performed 01/19/2016) Performed for Well woman exam with routine gynecological exam, Screening examination for venereal disease * HERPES SIMPLEX 1+2 AB IGG SPEC(Performed 01/19/2016) Performed for Well woman exam with routine gynecological exam, Screening examination for venereal disease * HEPATITIS SCREEN ACUTE(Performed 01/19/2016) Performed for Well woman exam with routine gynecological exam, Screening examination for venereal disease * RPR W REFLEX CONFIRM(Performed 01/19/2016) Performed for Well woman exam with routine gynecological exam, Screening examination for venereal disease * HIV-1 HIV-2 ANTIGEN/ANTIBODY W RFLX(Performed 01/19/2016) Performed for Well woman exam with routine gynecological exam, Screening examination for venereal disease * ECHO CONSULT - PEDIATRIC(Performed 04/19/2011) Performed for SVT (supraventricular tachycardia) * EKG 15-LEAD(Performed 04/19/2011) Performed for SVT (supraventricular tachycardia) * CARDIAC PROCEDURE ORDER(Performed 09/21/2010) * CARDIAC EKG ORDER(Performed 09/21/2010) * CALCIUM BLOOD(Performed 09/16/2010) * TYPE SCRN XMATCH RBC X1(Performed 09/16/2010) Performed for SVT (supraventricular tachycardia) * BASIC METABOLIC PANEL (CALCIUM TOTAL)(Performed 09/16/2010) Performed for SVT (supraventricular tachycardia) * CBC W AUTO DIFFERENTIAL(Performed 09/16/2010) Performed for SVT (supraventricular tachycardia) * CARDIAC CATH CONSULT(Performed 09/16/2010) Performed for SVT (supraventricular tachycardia) * HCG URINE QUALITATIVE - POINT OF CARE(Performed 09/16/2010) * EKG 15-LEAD(Performed 09/16/2010) Performed for SVT (supraventricular tachycardia) * EKG 15-LEAD(Performed 07/22/2010) Performed for SVT (supraventricular tachycardia) * ECHO CONSULT - PEDIATRIC(Performed 07/21/2010) Performed for SVT (supraventricular tachycardia) Results * STREP A SCREEN - POINT OF CARE (AMB) STL (10/25/2019 12:13 PM CDT) Only the most recent of3 resultswithin the time period is included. Strep A Rapid POCT Negative Negative Strep A Internal Control Present Lot # [id number] Expiration Date 12/12/2020 Throat ENTIRE THROAT (SURFACE REGION OF NECK) / Unknown 10/25/2019 12:13 PM CDT Funmilayo Varela [employer] [facility] - POIN T OF CARE ORDERABLES * (ABNORMAL) STREP A SCREEN - POCT (IP) URGENT CARE (07/07/2018 4:59 PM CDT) Strep A Rapid POCT Positive(A ) Negative [facility] POCT TESTING QC Verified Yes Yes [facility] POC T TESTING Throat ENTIRE THROAT (SURFACE REGION OF NECK) / Unknown 07/07/2018 4:59 PM CDT Renee Agrawal [employer] [facility] - POI NT OF CARE ORDERABLES Performing Organization Address City/State/[facility] Co de Phone Number [facility] POCT TESTING [address] [facility] [employer] [address] * FIRST TRI NUCHAL TRANSLUCENCY W:SEQ SCREEN (11/20/2017 8:50 AM CDT) Anatomical Region Laterality Modality Other 11/20/2017 8:50 AM CDT Narrative 11/20/2017 12:34 PM CDT [facility] FAX: Pat. Name: ERICKA SUÁREZ Linda Briseno. No: [id number] Study Date: 11/20/2017 8:50am , Age: 6 1995, 22 Pregnancies: 1, Para 0000 Height: 62 in Weight: 170 lb LMP: 09/01/2017 GA by LMP: 11w3d GA by US: 11w3d RAMSEY: 06/08/2018 GA Selected: 11w3d (LMP) RAMSEY: 06/08/2018 Referring MD: Aleksandra Jenkins MD Assistant Dean: Claire Jonas RDMS BMI: 31.09 Hist/Ind: NT MEASUREMENTS & AGE GROWTH EVALUATION Measurement GA Range Srce %for GA Ratios ----- ---- ------- CRL 4.6 cm 11w3d ([id number]) Hadl CRL 50% GA for sonogram 11w3d ([id number]) based on (CRL) Avg Heart Rate: 173 bpm EVAL, PLACENTA Presentation: transverse Heart Rate: 173 bpm Anatomy!Seen!Not Seen!Comments # Fetuses ! x ! ! Amnion ! x ! ! Chorion ! x ! ! Myometrium ! x ! ! Right Ovary ! x ! ! Left Ovary ! x ! ! Cul de sac ! x ! ! Midline Falx ! x ! ! Nasal Bone ! x ! ! Neck/Dorsum ! x ! ! Stomach ! x ! ! CLINICAL SUMMARY Study Number: 1 NUCHAL TRANSLUCENCY: The nuchal translucency is 1.3 mm. Blood was obtained today for serum screening. IMPRESSION: Single, live IUP, at 11w3d Appropriate size and interval growth Normal appearance of the nuchal translucency First trimester aneuploidy screening was performed RECOMMEND: Ultrasound at approximately 20 weeks for the anatomy survey We anticipate results of aneuploidy screening within one week Patient should return for 2nd blood draw to complete aneuploidy screening at 15-22 weeks (optimum 16-18 weeks) Thank you for allowing us the opportunity to care for your patient Kashif Yost MD <Electronic Signature> 11/20/2017 12:31pm Aleksandra Jenkins DO [facility] ORDERABLES * (ABNORMAL) PROFILE I W/ HBSAG (10/17/2017 3:24 PM CDT) Hepatitis B Virus Surface Antigen Negative Negative [facility] INSURANCE BILL RPR Non Reactive Non Reactive [facility] INSURANCE BILL Rubella Antibody <0.90(L) Immune >0.99 index [facility] INSURANCE BILL Comment: Non-immune <0.90 Equivocal 0.90 - 0.99 Immune >0.99 ABO O [facility] INSURANCE BILL Rh Type Positive [facility] INSURANCE BILL Comment: Please note: Prior records for this patient's ABO / Rh type are not available for additional verification. Antibody Screen Negative Negative [facility] INSURANCE BILL WBC 12.0(H) 3.4 - 10.8 x10E3/uL [facility] INSURANCE BILL RBC 3.93 3.77 - 5.28 x10E6/uL [facility] INSURANCE BILL Hemoglobin 11.6 11.1 - 15.9 g/dL [facility] INSURANCE BILL Hematocrit 35.4 34.0 - 46.6 % [facility] INSURANCE BILL MCV 90 79 - 97 fL [facility] INSURANCE BILL MCH 29.5 26.6 - 33.0 pg [facility] INSURANCE BILL MCHC 32.8 31.5 - 35.7 g/dL [facility] INSURANCE BILL RDW 13.6 12.3 - 15.4 % [facility] INSURANCE BILL Platelet Count 350 150 - 379 x10E3/uL [facility] INSURANCE BILL Granulocytes % 75 Not Estab. % [facility] INSURANCE BILL Lymphocytes % 17 Not Estab. % [facility] INSURANCE BILL Monocytes % 7 Not Estab. % [facility] INSURANCE BILL Eosinophils % 1 Not Estab. % [facility] INSURANCE BILL Basophils % 0 Not Estab. % [facility] INSURANCE BILL Immature Cells NOT NEEDED [facility] INSURANCE BILL Comment:Ancillary determined the test is not needed Granulocytes Absolute 8.9(H) 1.4 - 7.0 x10E3/uL [facility] INSURANCE BILL Lymphocytes Absolute 2.1 0.7 - 3.1 x10E3/uL [facility] INSURANCE BILL Monocytes Absolute 0.9 0.1 - 0.9 x10E3/uL [facility] INSURANCE BILL Eosinophils Absolute 0.1 0.0 - 0.4 x10E3/uL [facility] INSURANCE BILL Basophils Absolute 0.1 0.0 - 0.2 x10E3/uL [facility] INSURANCE BILL Immature Granulocytes 0 Not Estab. % [facility] INSURANCE BILL Immature Granulocytes Absolute 0.0 0.0 - 0.1 x10E3/uL [facility] INSURANCE BILL nRBC NOT NEEDED [facility] INSURANCE BILL Comment:Ancillary determined the test is not needed Comment Hematology NOT NEEDED [facility] INSURANCE BILL Comment:Ancillary determined the test is not needed Blood BLOOD SPECIMEN / Unknown 10/17/2017 3:24 PM CDT 10/17/2017 Narrative Resulting Agency Comment [facility] [address] [facility] [phone] Aleksandra Jenkins DO LAB - CHEMISTRY AMBER CHEN [facility] INSURANCE BILL [address] [place] [address] * HIV-1 HIV-2 ANTIGEN/ANTIBODY W RFLX (10/17/2017 3:24 PM CDT) Only the most recent of2 resultswithin the time period is included. HIV Screen 4th Generation w Reflex Non Reactive Non Reactive [facility] INSURANCE BILL Blood BLOOD SPECIMEN / Unknown 10/17/2017 3:24 PM CDT 10/17/2017 Narrative Resulting Agency Comment [facility] [address] [facility] [phone] Aleksandra Davila Gregory DIAZ LAB - SEROLOGY ORDER SEGUNDO Performing Organization Address [facility] de Phone Number [facility] INSURANCE BILL [address] [place] [address] * HEMOGLOBIN ELECTROPHORESIS (10/17/2017 3:24 PM CDT) Hemoglobin F 0.0 0.0 - 2.0 % [facility] INSURANCE BILL Hemoglobin A 97.9 96.4 - 98.8 % [facility] INSURANCE BILL Hemoglobin S 0.0 0.0 % [facility] INSURANCE BILL Hemoglobin C 0.0 0.0 % [facility] INSURANCE BILL Hemoglobin A2 2.1 1.8 - 3.2 % [facility] INSURANCE BILL Hemoglobin Variant NOT NEEDED [facility] INSURANCE BILL Comment:Ancillary determined the test is not needed Interpretation [facility] INSURANCE BILL Comment:Normal adult hemoglo bin present. Blood BLOOD SPECIMEN / Unknown 10/17/2017 3:24 PM CDT 10/17/2017 Narrative Resulting Agency Comment [facility] [address] [facility] [phone] Aleksandra Davila Gregory DIAZ LAB - CHEMISTRY ORDE RABLES Performing Organization Address [facility] de Phone Number [facility] INSURANCE BILL [address] [place] [address] * CYSTIC FIBROSIS MUTATION PNL (10/17/2017 3:24 PM CDT) Cystic Fibrosis Screen Comment: [facility] INSURANCE BILL Comment: RESULTS: Negative for 32 mutations analyzed INTERPRETATION: This individual is negative for the mutations analyzed. This negative result may need further interpretation depending on the clinical indication. This result reduces but does not eliminate the risk to be a CF carrier. COMMENTS: The detection rate varies with ethnicity and is listed below. The presence of an undetected mutation in the CF gene cannot be ruled out. In the absence of family history, the remaining risk that a person with a negative result could have at least one CF mutation is listed in the table. If there is a family history of CF, these risk figures do not apply. As detailed information regarding this individual's family history would permit a more accurate assessment of this individual's risk to be a carrier of cystic fibrosis, please contact [employer] at for a revised report. Mutation Detection Detection rates are based on mutation Rates among Ethnic frequencies in patients affected with Groups cystic fibrosis. Among individuals with an atypical or mild presentation (e.g. congenital absence of the vas deferens, pancreatitis) detection rates may vary from those provided here: Carrier risk reduction when no family history Detection Ethnicity Rate Ashkenazi 03/09 to 97% Worship 03/08 to 90% (non-) -Salvadorean to 69% to 73% to 55% This interpretation is based on the clinical and family relationship information provided and the current understanding of the molecular genetics of this condition. MUTATIONS ANALYZED: G85E V520F F7281C 2183AA to G R117H G542X V8780D 2184delA R334W S549N 394delTT 2789+5G to A R347H S549R 621+1G to T 3120+1G to A R347P G551D 711+1G to T 3659delC A455E R553X 1078delT 3849+10kbC to T [id number] R560T 1717-1G to A 3876delA QyumuL127 J6353V 1898+1G to A 3905insT METHODS/LIMITATIONS: DNA is isolated from the sample and tested for the 32 CF mutations on the [place] Array Platform ([employer]). Regions of the CFTR gene are amplified enzymatically and subjected to a solution-phase multiplex allele-specific primer extension with subsequent hybridization to a bead array and fluorescence detection. Polymorphisms F508C, I506V and I507V are included in this panel to rule out false positive [id number] homozygotes. Reflex testing of 5T is included in the panel for R117H interpretation. False positive or negative results may occur for reasons that include genetic variants, blood transfusions, bone marrow transplantation, erroneous representation of family relationships or contamination of a sample with maternal cells. REFERENCES: 1. Updates on Carrier Screening for Cystic Fibrosis. (2011) Am J Ob Gynecol 117(4):6305-6424 2. Jarred et al. (2004) Amina Med 6:387-91 3. Shamar et al. (2002) Amina Med 4:379-391 4. Preconception and carrier screening for cystic fibrosis: (2001)ACOG.ACMG publication Results Released By: Deejay Ramsay, Ph.D., Maintenance Worker [employer] Released By: Deejay Ramsay, Ph.D., Director Comment [facility] INSURANCE BILL Comment: The assay provides information intended to be used for carrier screening in adults of reproductive age, as an aid in screening, and as a confirmatory test for another medically established diagnosis in newborns and children. The test is not indicated for use in diagnostic testing, pre-implantation screening, or for any stand-alone diagnostic purposes without confirmation by another medically established diagnostic product or procedure. Blood BLOOD SPECIMEN / Unknown 10/17/2017 3:24 PM CDT 10/17/2017 Narrative Resulting Agency Comment [facility] [place] [address] [facility] [phone] Aleksandra Jenkins DO LAB - HEMATOLOGY ORD ERABLES [facility] INSURANCE BILL [address] [place] [address] * PAP IG LB CT+NG+TV RFLX HPV ASCU (10/17/2017 2:38 PM CDT) Diagnosis [facility] INSURANCE BILL Comment: NEGATIVE FOR INTRAEPITHELIAL LESION AND MALIGNANCY. THIS SPECIMEN WAS RESCREENED PART OF OUR KNOWLEDGE ARCHITECT PROGRAM. Specimen Adequacy [facility] INSURANCE BILL Comment: Satisfactory for evaluation. Endocervical and/or squamous metaplastic cells (endocervical component) are present. Clinician Provided ICD10 [facility] INSURANCE BILL Comment: Z34.01 Z3A.01 Z11.3 Performed by [facility] INSURANCE BILL Comment:Honey Suárez, Cytot echnologist ([facility]) QC Reviewed by [facility] INSURANCE BILL Comment:Babita Stone, Supervisory [employer] Web Application Developer (ASCP) Comment . [facility] INSURANCE BILL Note [facility] INSURANCE BILL Comment: The Pap smear is a screening test designed to aid in the detection of premalignant and malignant conditions of the uterine cervix. It is not a diagnostic procedure and should not be used as the sole means of detecting cervical cancer. Both false-positive and false-negative reports do occur. . IGLBP CPT Code Automation [facility] INSURANCE BILL Comment: This liquid based ThinPrep(R) pap test was screened with the use of an image guided system. Note [facility] INSURANCE BILL Comment: The HPV DNA reflex criteria were not met with this specimen result therefore, no HPV testing was performed. . Chlamydia trachomatis ANTONIETA Negative Negative [facility] INSURANCE BILL GC ANTONIETA Negative Negative [facility] INSURANCE BILL Trichomonas vaginalis by ANTONIETA Negative Negative [facility] INSURANCE BILL PART OF UTERINE CERVIX / Unknown 10/17/2017 2:38 PM CDT 10/18/2017 Narrative [facility] INSURANCE BILL - 10/22/2017 11:10 AM CDT Source.............Cervix;Endocervix LMP / Prev Treat...None Other.............. No. of containers..01 ThinPrep Vial Resulting Agency Comment [address] [place] [phone] Aleksandra Jenkins DO LAB - PATHOLOGY/CYTO LOGY ORDERABLES [facility] INSURANCE BILL [address] [place] [address] * DRUG ABUSE URINE PANEL 7 (10/17/2017 2:14 PM CDT) Amphetamines Screen Urine Negative Cutoff=10 00 ng/mL [facility] INSURANCE BILL Comment:Amphetamine test inc ludes Amphetamine and Methamphetamine. Barbiturates Screen Urine Negative Cutoff=30 0 ng/mL [facility] INSURANCE BILL Benzodiazepines Screen Urine Negative Cutoff=30 0 ng/mL [facility] INSURANCE BILL Cannabinoids Screen Urine Negative Cutoff=50 ng/mL [facility] INSURANCE BILL Cocaine Screen Urine Negative Cutoff=30 0 ng/mL [facility] INSURANCE BILL Opiate Screen Urine Negative Cutoff=30 0 ng/mL [facility] INSURANCE BILL Comment:Opiate test includes Codeine and Morphine only. Phencyclidine Screen Urine Negative Cutoff=25 ng/mL [facility] INSURANCE BILL Urine URINE / Unknown 10/17/2017 2 :14 PM CDT 10/17/2017 Narrative Resulting Agency Comment [facility] [place] [address] [place] [phone] Aleksandra Jenkins DO LAB - URINE CHEMISTR Y ORDERABLES [facility] INSURANCE BILL [address] [place] [address] * CULTURE URINE (10/17/2017 2:14 PM CDT) Urine Culture Routine Final report [facility] INSURANCE BILL Result 1 [facility] INSURANCE BILL Comment: Mixed urogenital [place] 25,000-50,000 colony forming units per mL Urine URINE SPECIMEN OBTAINED BY CLEAN CATCH PROCEDURE / Unknown 10/17/2017 2:14 PM CDT 10/17/2017 Narrative Resulting Agency Comment [facility] [address] [facility] [phone] Aleksandra Jenkins DO LAB - MICROBIOLOGY O RDERABLES [facility] INSURANCE BILL [address] [place] [address] * (ABNORMAL) HCG URINE QUALITATIVE - POINT OF CARE (AMB) STL (10/17/2017) HCG Qual Urine Positive(A) Negative HCG Urine QC NEG negative NEGATIVE - POSITIVE HCG Urine QC POS positive NEGATIVE - POSITIVE Expiration Date 1 Lot # 1 Urine URINE / Unknown 10/17/2017 Aleksandra Jenkins DO LAB - POINT OF CARE ORDERABLES * TSH HI LOW REFLEX FREE T4 (03/13/2017 3:42 PM ACCOUNTING SYSTEMS MANAGER) TSH 1.37 0.358 - 3.740 ulU/mL [facility] INSURANCE BILL Blood BLOOD SPECIMEN / Unknown 03/13/2017 3:42 PM ACCOUNTING SYSTEMS MANAGER 03/13/2017 Narrative Resulting Agency Comment [facility] [place] [address] [place] [phone] Keri Melendrez [employer] LAB - CHEMISTRY O RDERABLES [facility] INSURANCE BILL [address] [place] [address] * (ABNORMAL) CBC W AUTO DIFFERENTIAL (03/13/2017 3:42 PM ACCOUNTING SYSTEMS MANAGER) Only the most recent of2 resultswithin the time period is included. WBC 9.1 4.4 - 10.7 x10E9/L [facility] INSURANCE BILL RBC 4.62 3.80 - 5.20 x10E12/L [facility] INSURANCE BILL Hemoglobin 13.2 12.0 - 15.6 gm/dL [facility] INSURANCE BILL Hematocrit 42.8 35.9 - 45.5 % [facility] INSURANCE BILL MCV 92.6 80.7 - 98.3 fL [facility] INSURANCE BILL MCH 28.6 26.7 - 34.0 pg [facility] INSURANCE BILL MCHC 30.8 30.8 - 35.9 gm/dL [facility] INSURANCE BILL RDW 12.4 12.1 - 14.9 % [facility] INSURANCE BILL Platelet Count 365 153 - 416 x10E9/L [facility] INSURANCE BILL Comment:MPV FL BLOOD (SSM) 1 0.8 fl 9.4-12.9 Granulocytes % 59.9 44.0 - 73.0 % [facility] INSURANCE BILL Lymphocytes % 26.8 20.0 - 43.0 % [facility] INSURANCE BILL Monocytes % 8.6 5.0 - 13.0 % [facility] INSURANCE BILL Eosinophils % 3.1 0.0 - 6.0 % [facility] INSURANCE BILL Basophils % 1.3 0.0 - 2.0 % [facility] INSURANCE BILL Granulocytes Absolute 5.47 2.01 - 7.14 x10E9/L [facility] INSURANCE BILL Lymphocytes Absolute 2.44 1.07 - 3.94 x10E9/L [facility] INSURANCE BILL Monocytes Absolute 0.78 0.26 - 1.07 x10E9/L [facility] INSURANCE BILL Eosinophils Absolute 0.28 0 - 0.47 x10E9/L [facility] INSURANCE BILL Basophils Absolute 0.12(H) 0 - 0.08 x10E9/L [facility] INSURANCE BILL Immature Granulocytes 0.3 0 - 1 % [facility] INSURANCE BILL Immature Granulocytes Absolute 0.03 0.00 - 0.06 x10E9/L [facility] INSURANCE BILL nRBC 0 /100 WBC [facility] INSURANCE BILL Blood BLOOD SPECIMEN / Unknown 03/13/2017 3:42 PM ACCOUNTING SYSTEMS MANAGER 03/13/2017 Narrative Resulting Agency Comment Replaced by [facility] [address] [place] [phone] Keri Melendrez VAMP CUT OUT WORKER-BUTTON BRADDER LAB - HEMATOLOGY ORDERABLES [facility] INSURANCE BILL [address] [place] [address] * US PELVIS WITH TRANSVAG NON OB (03/13/2017 3:11 PM ACCOUNTING SYSTEMS MANAGER) Anatomical Region Laterality Modality Pelvis Ultrasound 03/13/2017 3:44 PM ACCOUNTING SYSTEMS MANAGER Impressions 03/13/2017 3:45 PM ACCOUNTING SYSTEMS MANAGER Normal pelvic ultrasound. Narrative 03/13/2017 3:45 PM ACCOUNTING SYSTEMS MANAGER Ultrasound Pelvis - Transabdominal/Transvaginal with Doppler Indication: Pelvic pain. Technique: Transabdominal and endovaginal images of the female pelvis were obtained with Doppler imaging of the ovaries. Spectral analysis was performed. Findings: On transabdominal images, the uterus measures approximately 8 x 3.66 x 4.72 cm in size. No discrete uterine mass is identified. There is no free fluid within the pelvis. Ovaries appear unremarkable on transabdominal images. Endovaginal imaging was performed for more detailed evaluation of the ovaries and of the myometrium. On endovaginal imaging, no uterine mass is identified. The endometrium measures approximately 0.89 cm in thickness. It is normal and uniform in echotexture. The right ovary measures approximately 3.34 x 2.63 x 2.36 cm in size. A few small cysts are present at the right ovary. The largest right ovarian cyst appear sonographically simple and measures approximately 1.22 x 1.53 x 1.15 cm. The left ovary measures approximately 2.95 x 2.18 x 2.53 cm in size. A few small cysts are present at the left ovary, most likely representing small follicles. Normal color spectral Doppler flow and spectral Doppler analysis is identified to both ovaries with documentation of normal arterial and venous waveforms. Color flow is normal. Procedure Note Baranski, Tyra J, MD - 03/13/2017 Ultrasound Pelvis - Transabdominal/Transvaginal with Doppler Indication: Pelvic pain. Technique: Transabdominal and endovaginal images of the female pelvis were obtained with Doppler imaging of the ovaries. Spectral analysis was performed. Findings: On transabdominal images, the uterus measures approximately 8 x 3.66 x 4.72 cm in size. No discrete uterine mass is identified. There is no free fluid within the pelvis. Ovaries appear unremarkable on transabdominal images. Endovaginal imaging was performed for more detailed evaluation of the ovaries and of the myometrium. On endovaginal imaging, no uterine mass is identified. The endometrium measures approximately 0.89 cm in thickness. It is normal and uniform in echotexture. The right ovary measures approximately 3.34 x 2.63 x 2.36 cm in size. A few small cysts are present at the right ovary. The largest right ovarian cyst appear sonographically simple and measures approximately 1.22 x 1.53 x 1.15 cm. The left ovary measures approximately 2.95 x 2.18 x 2.53 cm in size. A few small cysts are present at the left ovary, most likely representing small follicles. Normal color spectral Doppler flow and spectral Doppler analysis is identified to both ovaries with documentation of normal arterial and venous waveforms. Color flow is normal. IMPRESSION Normal pelvic ultrasound. Keri Melendrez VAMP CUT OUT WORKER-BUTTON BRADDER US ORDERABLES * (ABNORMAL) VAGINITIS PLUS (BV CA CT NG TRICH) (01/22/2017 3:52 PM ACCOUNTING SYSTEMS MANAGER) Atopobium vaginae Low - 0 Score [facility] INSURANCE BILL BVAB 2 Low - 0 Score [facility] INSURANCE BILL Megashaera Low - 0 Score [facility] INSURANCE BILL Comment: Calculate total score by adding the 3 individual bacterial vaginosis (BV) marker scores together. Total score is interpreted as follows: Total score 0-1: Indicates the absence of BV. Total score 2: Indeterminate for BV. Additional clinical data should be evaluated to establish a diagnosis. Total score 3-6: Indicates the presence of BV. . This test was developed and its performance characteristics determined by [facility]. It has not been cleared or approved by the Food and Drug Administration. The FDA has determined that such clearance or approval is not necessary. Leta albicans ANTONIETA Positive(A) Negative [facility] INSURANCE BILL Leta glabrata ANTONIETA Negative Negative [facility] INSURANCE BILL Comment: This test was developed and its performance characteristics determined by [facility]. It has not been cleared or approved by the Food and Drug Administration. The FDA has determined that such clearance or approval is not necessary. Trichomonas vaginalis by ANTONIETA Negative Negative [facility] INSURANCE BILL Chlamydia Trachomatis ANTONIETA Negative Negative [facility] INSURANCE BILL GC ANTONIETA Negative Negative [facility] INSURANCE BILL ENTIRE VAGINA / Unknown 01/22/2017 3:52 PM ACCOUNTING SYSTEMS MANAGER 01/22/2017 Narrative Resulting Agency Comment [facility] [address] [id number] Aleksandra Jenkins DO LAB - MICROBIOLOGY O RDERABLES Performing Organization Address [facility] Co de Phone Number [facility] INSURANCE BILL [address] [place] [address] * CHLAMYDIA + GC + TRICH DNA AMPL (PO REF LAB) (01/19/2016 1:43 PM ACCOUNTING SYSTEMS MANAGER) Chlamydia trachomatis ANTONIETA Negative Negative [facility] ACCOUNT BILL GC DNA Probe Negative Negative [facility] ACCOUNT BILL Trichomonas vaginalis by ANTONIETA Negative Negative [facility] ACCOUNT BILL Microbiology ENTIRE ENDOCERVIX / Unknown 01/19/2016 1:43 PM ACCOUNTING SYSTEMS MANAGER 01/19/2016 Narrative Resulting Agency Comment [facility] [phone] Aleksandra Jenkins DO LAB - MICROBIOLOGY O RDERABLES Performing Organization Address City/[facility]/ZIP Co de Phone Number [facility] ACCOUNT BILL [address] [place] [address] * HERPES SIMPLEX 1+2 ANTIBODY IGM IFA (PO REF LAB) (01/19/2016 11:01 AM ACCOUNTING SYSTEMS MANAGER) Herpes Simplex Virus 1 Antibody IgM <1:10 <1:10 titer [facility] ACCOUNT BILL Herpes Simplex Virus 2 Antibody IgM <1:10 <1:10 titer [facility] ACCOUNT BILL Comment: HSV 1 and HSV 2 share many cross-reacting antigens. Elevated titers to both HSV 1 and HSV 2 may represent crossreactive HSV antibodies rather than exposure to both HSV 1 and HSV 2. Results for this test are for research purposes only by the assay's responder. The performance characteristics of this product have not been established. Results should not be used as a diagnostic procedure without confirmation of the diagnosis by another medically established diagnostic product or procedure. BLOOD SPECIMEN / Unknown 01/19/2016 11:01 AM ACCOUNTING SYSTEMS MANAGER 01/19/2016 Narrative Resulting Agency Comment [facility] [address] [id number] Aleksandra Jenkins DO LAB - SEROLOGY ORDER SEGUNDO [facility] ACCOUNT BILL [address] [place] [address] * HERPES SIMPLEX 1+2 AB IGG SPEC (PO REF LAB) (01/19/2016 11:01 AM ACCOUNTING SYSTEMS MANAGER) Pathologist [facility] Herpes Simplex Virus I Antibody IgG Type Specific Index <0.91 0.00 - 0.90 index [facility] ACCOUNT BILL Comment: Negative <0.91 Equivocal 0.91 - 1.09 Positive >1.09 Note: Negative indicates no antibodies detected to HSV-1. Equivocal may suggest early infection. If clinically appropriate, retest at later date. Positive indicates antibodies detected to HSV-1. Herpes Simplex Virus 2 Antibody IgG Type Specific <0.91 0.00 - 0.90 index [facility] ACCOUNT BILL Comment: Negative <0.91 Equivocal 0.91 - 1.09 Positive >1.09 Note: Negative indicates no antibodies detected to HSV-2. Equivocal may suggest early infection. If clinically appropriate, retest at later date. Positive indicates antibodies detected to HSV-2. Blood BLOOD SPECIMEN / Unknown 01/19/2016 11:01 AM ACCOUNTING SYSTEMS MANAGER 01/19/2016 Narrative Resulting Agency Comment [facility] [place] [address] [facility] [phone] Aleksandra Jenkins DO LAB - SEROLOGY ORDER SEGUNDO [facility] ACCOUNT BILL [address] [place] [address] * RPR W REFLEX CONFIRM (01/19/2016 11:01 AM ACCOUNTING SYSTEMS MANAGER) RPR Non Reactive Non Reactive [facility] ACCOUNT BILL Blood BLOOD SPECIMEN / Unknown 01/19/2016 11:01 AM ACCOUNTING SYSTEMS MANAGER 01/19/2016 Narrative Resulting Agency Comment [facility] [place] [address] [facility] [id number] Aleksandra Jenkins DO LAB - CHEMISTRY ORDLinda CHEN Performing Organization Address City/[facility] Co de Phone Number [facility] ACCOUNT BILL [address] [place] [address] * HEPATITIS SCREEN ACUTE (01/19/2016 11:01 AM ACCOUNTING SYSTEMS MANAGER) Hepatitis A Virus Antibody IgM Negative Negative [facility] ACCOUNT BILL Hepatitis B Virus Surface Antigen Negative Negative [facility] ACCOUNT BILL Hepatitis B Core Virus Antibody IgM Negative Negative [facility] ACCOUNT BILL Hepatitis C Antibody <0.1 0.0 - 0.9 s/co ratio [facility] ACCOUNT BILL Comment: Negative: < 0.8 Indeterminate: 0.8 - 0.9 Positive: > 0.9 . The CDC recommends that a positive HCV antibody result be followed up with a HCV Nucleic Acid Amplification test (171520). Blood BLOOD SPECIMEN / Unknown 01/19/2016 11:01 AM ACCOUNTING SYSTEMS MANAGER 01/19/2016 Narrative Resulting Agency Comment [facility] [place] [address] [facility] [phone] Aleksandra Jenkins DO LAB - CHEMISTRY AMBER CHEN Performing Organization Address [facility] de Phone Number [facility] ACCOUNT BILL [address] [place] [address] * ECHO CONSULT - PEDIATRIC (04/19/2011 10:30 AM ACCOUNTING SYSTEMS MANAGER) Only the most recent of2 resultswithin the time period is included. 04/19/2011 10:3 0 AM ACCOUNTING SYSTEMS MANAGER Narrative [facility] - 04/19/2011 2:03 PM ACCOUNTING SYSTEMS MANAGER , Congenital Transthoracic Echocardiogram 2D, M-mode, Doppler, and Color Doppler Name: ERICKA SUÁREZ MR #: [id number] Study date: 04/19/2011 Age: 15 years : 1995 Gender: Female Ht: 62.5 in / 158.7 cm Wt: 130.5 lb / 59.3 kg BSA: 1.6 m HR: BP: / age: RAMSEY: Maternal age: EMAIL OPERATIONS MANAGER: Weston Landa MD PEDIATRIC ECHO HAND SHOES SEWER: AYE Jose History: Supraventricular tachycardia. Procedure: The procedure was performed in the echo lab. Anatomic relationships: Visceral situs: normal. Left sided cardiac apex (levocardia). Normal atrial situs (atrial situs solitus). Concordant atrioventricular alignment. Ventricular d-loop. Normal infundibular anatomy. Concordant ventriculoarterial connection. Normally related great vessels. Systemic veins: SVC: The superior vena cava and left innominate vein appeared of normal caliber, with normal flow. There is a small echodensity seen in the superior vena cava that does nto obstruct vena caval flow. IVC: The inferior vena cava was normal in size and course. IVC Doppler: The flow pattern was normal. Pulmonary veins: The pulmonary veins drained normally to the left atrium. Doppler: Doppler flow pattern was normal in the pulmonary vein(s). Right atrium: Size was normal. Left atrium: Size was normal. Atrial septum: No left to right or right to left atrial shunting was detected. Tricuspid valve: The valve structure was normal. Doppler: The transtricuspid velocity was within the normal range. There was no evidence for tricuspid stenosis. There was trivial regurgitation. Mitral valve: Valve structure was normal. Doppler: The transmitral velocity was within the normal range. There was no evidence for stenosis. There was no regurgitation. Right ventricle: The cavity size was normal. Wall thickness was normal. Systolic function was normal. Left ventricle: The cavity size was normal. Wall thickness was normal. Systolic function was normal. There were no regional wall motion abnormalities. Ventricular septum: No ventricular shunting was detected. Pulmonic valve: Leaflets exhibited normal thickness and normal cuspal separation. Doppler: The transpulmonic velocity was within the normal range. There was trivial regurgitation. Aortic valve: The valve was trileaflet. Leaflets exhibited normal thickness and normal cuspal separation. Doppler: Transaortic velocity was within the normal range. There was no stenosis. There was no regurgitation. Pulmonary artery: The main pulmonary artery was normal, with normal-sized, confluent proximal branch pulmonary arteries. Aorta: There was a normal-sized aortic arch with normal brachiocephalic branching. Extracardiac shunting: Patent ductus arteriosus: A tiny systemic to pulmonary communication was present. The origin was from the aortic arch. Shunt flow was continuously left to right. Pericardium: There was no pericardial effusion. The pericardium was normal in appearance. Impressions: - Diagnoses: Tiny patent ductus arteriosus. - Summary: Compared to the previous study of 07/21/2010, there is no significant change. There remains a tiny patent ductus arteriosus with continuous left to right flow. The left atrium is not dilated. Biventricular systolic function is normal. There is no pathologic valvular regurgitation. There is a small echodensity seen in the superior vena cava that does nto obstruct vena caval flow. Prepared and signed by Weston Landa MD Signed 04/19/2011 14:05:54 System measurement tables MM %FS: 43.9 % Ao Diam: 23.3 mm EDV(Teich): 85.9 ml EF(Teich): 75.4 % ESV(Teich): 21.2 ml IVSd: 6.9 mm IVSs: 12.8 mm LA Diam: 29.5 mm LA/Ao: 1.3 LVIDd: 43.6 mm LVIDs: 24.5 mm LVPWd: 6.4 mm LVPWs: 13.8 mm LVd Mass: 91.8 g LVd Mass (ASE): 85 g LVd Mass Ind (ASE): 53.1 g/m2 LVd Mass Index: 57.4 g/m2 LVs Mass: 109.6 g LVs Mass (ASE): 99.2 g LVs Mass Ind (ASE): 62 g/m2 LVs Mass Index: 68.5 g/m2 SV(Teich): 64.8 ml PW LPA Vmax: 1.5 m/s LPA maxP.2 mmHg MPA Vmax: 1.1 m/s MPA maxP.9 mmHg RPA Vmax: 0.8 m/s RPA maxP.6 mmHg Procedure Note 04/19/2011 , Congenital Transthoracic Echocardiogram 2D, M-mode, Doppler, and Color Doppler Name: ERICKA SUÁREZ MR #: [id number] Study date: 04/19/2011 Age: 15 years : 1995 Gender: Female Ht: 62.5 in / 158.7 cm Wt: 130.5 lb / 59.3 kg BSA: 1.6 m HR: BP: / age: RAMSEY: Maternal age: EMAIL OPERATIONS MANAGER: Weston Landa MD PEDIATRIC ECHO HAND SHOES SEWER: AYE Jose History: Supraventricular tachycardia. Procedure: The procedure was performed in the echo lab. Anatomic relationships: Visceral situs: normal. Left sided cardiac apex (levocardia). Normal atrial situs (atrial situs solitus). Concordant atrioventricular alignment. Ventricular d-loop. Normal infundibular anatomy. Concordant ventriculoarterial connection. Normally related great vessels. Systemic veins: SVC: The superior vena cava and left innominate vein appeared of normal caliber, with normal flow. There is a small echodensity seen in the superior vena cava that does nto obstruct vena caval flow. IVC: The inferior vena cava was normal in size and course. IVC Doppler: The flow pattern was normal. Pulmonary veins: The pulmonary veins drained normally to the left atrium. Doppler: Doppler flow pattern was normal in the pulmonary vein(s). Right atrium: Size was normal. Left atrium: Size was normal. Atrial septum: No left to right or right to left atrial shunting was detected. Tricuspid valve: The valve structure was normal. Doppler: The transtricuspid velocity was within the normal range. There was no evidence for tricuspid stenosis. There was trivial regurgitation. Mitral valve: Valve structure was normal. Doppler: The transmitral velocity was within the normal range. There was no evidence for stenosis. There was no regurgitation. Right ventricle: The cavity size was normal. Wall thickness was normal. Systolic function was normal. Left ventricle: The cavity size was normal. Wall thickness was normal. Systolic function was normal. There were no regional wall motion abnormalities. Ventricular septum: No ventricular shunting was detected. Pulmonic valve: Leaflets exhibited normal thickness and normal cuspal separation. Doppler: The transpulmonic velocity was within the normal range. There was trivial regurgitation. Aortic valve: The valve was trileaflet. Leaflets exhibited normal thickness and normal cuspal separation. Doppler: Transaortic velocity was within the normal range. There was no stenosis. There was no regurgitation. Pulmonary artery: The main pulmonary artery was normal, with normal-sized, confluent proximal branch pulmonary arteries. Aorta: There was a normal-sized aortic arch with normal brachiocephalic branching. Extracardiac shunting: Patent ductus arteriosus: A tiny systemic to pulmonary communication was present. The origin was from the aortic arch. Shunt flow was continuously left to right. Pericardium: There was no pericardial effusion. The pericardium was normal in appearance. Impressions: - Diagnoses: Tiny patent ductus arteriosus. - Summary: Compared to the previous study of 07/21/2010, there is no significant change. There remains a tiny patent ductus arteriosus with continuous left to right flow. The left atrium is not dilated. Biventricular systolic function is normal. There is no pathologic valvular regurgitation. There is a small echodensity seen in the superior vena cava that does nto obstruct vena caval flow. Prepared and signed by Weston Landa MD Signed 04/19/2011 14:05:54 System measurement tables MM %FS: 43.9 % Ao Diam: 23.3 mm EDV(Teich): 85.9 ml EF(Teich): 75.4 % ESV(Teich): 21.2 ml IVSd: 6.9 mm IVSs: 12.8 mm LA Diam: 29.5 mm LA/Ao: 1.3 LVIDd: 43.6 mm LVIDs: 24.5 mm LVPWd: 6.4 mm LVPWs: 13.8 mm LVd Mass: 91.8 g LVd Mass (ASE): 85 g LVd Mass Ind (ASE): 53.1 g/m2 LVd Mass Index: 57.4 g/m2 LVs Mass: 109.6 g LVs Mass (ASE): 99.2 g LVs Mass Ind (ASE): 62 g/m2 LVs Mass Index: 68.5 g/m2 SV(Teich): 64.8 ml PW LPA Vmax: 1.5 m/s LPA maxP.2 mmHg MPA Vmax: 1.1 m/s MPA maxP.9 mmHg RPA Vmax: 0.8 m/s RPA maxP.6 mmHg Weston Landa MD ECHO ORDERABLES [facility] [address] [place] [address] * EKG 15-LEAD (04/19/2011 9:36 AM ACCOUNTING SYSTEMS MANAGER) Only the most recent of3 resultswithin the time period is included. Ventricular Rate 86 BPM CG MUSE Atrial Rate 86 BPM CG MUSE P-R Interval 138 ms CG MUSE QRS Duration ms 82 ms CG MUSE Q-T Interval ms 358 ms CG MUSE QTC Calculation (Bezet) 428 ms CG MUSE Calculated P [place] 55 degrees CG MUSE Calculated R [place] 83 degrees CG MUSE Calculated T [place] 61 degrees CG MUSE Interpretation EKG When compared with ECG of 17-SEP-2010 06:51,there is no significant change. Normal sinus rhythm with sinus arrhythmia persists, normal ECG. Confirmed by Weston Landa ([id number]) on 04/19/2011 1:04:03 PM CG MUSE 04/19/2011 9:36 AM ACCOUNTING SYSTEMS MANAGER 04/19/2011 1:04 PM ACCOUNTING SYSTEMS MANAGER Narrative Transcriptions Document, Scanned - 04/19/2011 1:04 PM CST Weston Landa MD ECG ORDERABLES CG MUSE * CARDIAC PROCEDURE ORDER (09/21/2010 6:23 AM CDT) Narrative Transcriptions Document, Scanned - 09/21/2010 6:23 AM CDT Scanned Document CARDIAC SERVICES ORD ERABLES * CARDIAC EKG ORDER (09/21/2010 6:23 AM CDT) Narrative Transcriptions Document, Scanned - 09/21/2010 6:23 AM CDT Scanned Document CARDIAC SERVICES ORD ERABLES * (ABNORMAL) CALCIUM BLOOD (09/16/2010 9:25 AM CDT) Calcium 8.4(L) 9.2 - 10.7 mg/dl [facility] BLOOD SPECIMEN / Unknown 09/16/2010 9:25 AM CDT 09/16/2010 9:36 AM CDT Manjit Grider MD LAB - CHEMISTRY AMBER CHEN Performing Organization Address [facility] Co de Phone Number [facility] [address] [place] [address] * TYPE SCRN XMATCH RBC X1 (09/16/2010 8:55 AM CDT) Pathologist [facility] ABO Rh O POS [facility] Antibody Screen NEG Negative [facility] Products Ready 1 [facility] BLOOD SPECIMEN / Unknown 09/16/2010 8:55 AM CDT 09/16/2010 8:59 AM CDT Manjit Grider MD LAB - BLOOD BANK ORD ERABLES Performing Organization Address [facility] de Phone Number [facility] [address] [place] [address] * (ABNORMAL) BASIC METABOLIC PANEL (CALCIUM TOTAL) (09/16/2010 8:55 AM CDT) [facility] Sodium 136(L) 137 - 145 mmol/L [facility] Potassium 3.7 3.5 - 5.1 mmol/L [facility] Chloride 103 98 - 107 mmol/L [facility] CO2 20.2 18 - 27 mmol/L [facility] Glucose 139(H) 70 - 106 mg/dl [facility] BUN 11.4 8 - 21 mg/dl [facility] Calcium 5.6(LL) 9.2 - 10.7 mg/dl [facility] Creatinine 0.45 0.31 - 0.88 mg/dl [facility] BLOOD SPECIMEN / Unknown 09/16/2010 8:55 AM CDT 09/16/2010 8:59 AM CDT Manjit Grider MD LAB - CHEMISTRY AMBER CHEN Performing Organization Address [facility] Co de Phone Number [facility] [address] [place] [address] * HCG URINE QUALITATIVE - POINT OF CARE (09/16/2010 7:00 AM CDT) Pathologist [facility] HCG Qual Urine NEGATIVE Negative [facility] POCT TESTING QC Verified YES Yes [facility] PO CT TESTING Urine specimen (specimen) URINE / Unknown 09/16/2010 7:00 AM CDT Manjit Grider MD LAB - POINT OF CARE ORDERABLES [facility] POCT TESTING [address] [place] [address] Care Teams Vinegar Maker Relationship Specialty Start Date End Date Mary Alice Garcia MD [address] [place] [id number] PCP - General 07/21/10
--- OUTSIDE RECORDS SUMMARY | 2024-03-21 17:00 | XMS_ITS | Encounter Summary ---
Author Organization [facility] Address [address] [place] [address] Care Team Providers Care Finish Filer Name Role Phone Sandra Zuniga MD Primary Care Provider [phone] Phuong Dunne NP Primary Care Provider + [phone] Encounter Details Date Type Department Care Team (Late st Contact Info) Description 02/22/2021 Drill Cyclet Message Enc [facility] Family & Internal Medicine [facility] [id number] [place] [phone] Sandra Zuniga MD [address] [place] [address]. [address] [place], [place] [id number] COVID Update Social History Tobacco Use Types Packs/Day Years Used Date Smoking Tobacco: Never Smokeless Tobacco: Never Alcohol Use Standard Drinks/Week Comments Yes 0 (1 standard drink = 0.6 oz pur e alcohol) once per month per patient. PHQ-2 Answer Date Recorded PHQ-2 Score - If the patient scores above 3, please move on to questions 3-9 2 02/23/2021 Comments No Sex and Gender Information Value Date Recorded Sex Assigned at Female 03/17/2024 8:21 AM TRACK OILER Legal Sex Female 7:14 PM CDT Gender Identity Not on file Sexual Orientation Not on file COVID-19 Exposure Response Date Recorded In the last month, have you been in contact with someone who was confirmed or suspected to have Coronavirus / COVID-19? Yes 02/23/2021 11:28 AM TRACK OILER documented as of this encounter Plan of Treatment Not on file documented as of this encounter Visit Diagnoses Not on filedocumented in this encounter Additional Health Concerns Infection Onset Date Last Indicated Resolved Time COVID-19 Rule Out 03/03/2024 03/03/2024 03/03/2024 4:32 PM TRACK OILER Influenza - Seasonal 03/03/2024 03/03/2024 025 12:32 AM TRACK OILER COVID-19 Rule Out 03/17/2024 03/17/2024 03/17/2024 9:13 AM TRACK OILER documented as of this encounter Care Teams Finish Filer Relationship Specialty [place] [address] [place] [address] PCP - General FAMILY PRACTICE 01/14/21 10/04/23 [place] [address] [address] [place] [address] PCP - General Nurse Practitioner Family 10/05/23 documented as of this encounter
--- OUTSIDE RECORDS SUMMARY | 2024-03-21 17:00 | XMS_ITS | Clinical Summary ---
Author Organization [facility] Medical Office Building [address] [place] [address] Care Team Providers Care Tester Regulator Name Role Phone MigelFercho perez Primary Care Provider [phone] Allergies No known active allergies Medications escitalopram [...] Diagnosed Date Intractable episodic tension-type headache 10/12 Medical History Medical History Date Comments Depression Headache, tension-type Anxiety Family History Medical History Relation Name Comments Migraines Father Hypertension Mother Migraines Mother Relation Name Status Comments Father Mother Social History Tobacco Use Types Packs/Day Years [...] on file Legal Sex Female 7:24 PM EMULSION OPERATOR Gender Identity Not on file Sexual Orientation Not on file Obstetrics History Para Term AB IAB SAB Ectopic Multiple Livin g Live Births 1 Date Outcome GA Total Labor Labor/2nd/3rd Weight Sex Type Anes PTL Leanne A1 A5 Name Clin Last Filed Vital Signs Vital Sign Reading Time Taken Comments Blood Pressure 100/70 11/21/2021 10:15 AM CDT Pulse - - Temperature - - Respiratory Rate 16 10/12/2017 11:28 AM CDT Oxygen Saturation - - Inhaled Oxygen Concentration - - Weight 88 kg (194 lb) 12/26/2021 10:21 AM EMULSION OPERATOR Height 157.5 cm (5' 2 ) 12/26/2021 10:21 AM EMULSION OPERATOR Body Mass Index 35.48 12/26/2021 10:21 AM EMULSION OPERATOR Plan of Treatment Health Maintenance Due Date Last Done Comments Cervical Cancer Screening 1996 Depression Screening 1996 Hepatitis C Screening 1996 DTaP/Tdap/Td Vaccine (6 - Tdap) 06/14/2007 07/29/2001, 07/29/2001, 12/16/1997, Additional history exists Regular Well Visit/Exam 18-64 2014 Influenza Vaccine (#1) 2023 Varicella Vaccines Completed 07/29/2001, 0 06/04/2001, 07/02/1997 HPV Vaccines Aged Out No longer eligi ble based on patient's age to complete this topic Pneumococcal vaccine <65 Aged Out No longer eligible based on patient's age to complete this topic Insurance [facility] Care Teams Tester Regulator Relationship Specialty Start Date End Date Fercho Gomez DO PCP - General Internal Medicine 09/12/17
--- OUTSIDE RECORDS SUMMARY | 2024-03-21 17:00 | XMS_ITS | Encounter Summary ---
Author Organization [facility] Address [address] [place] [address] Care Team Providers Care Utilization Coordinator Name Role Phone Tonia Cross HAND HOSE CUTTER Primary Care Provider Sandra Carvalho MD Primary Care Provider [phone] Phuong Dunne HAND HOSE CUTTER Primary Care Provider + [phone] Encounter Details Date Type Department Care Team (Late st Contact Info) Description 06/01/[address] [facility] Patient Accounts [address] [place], [place] [id number] [facility] Provider Notice regarding your account balance. Social History Tobacco Use Types Packs/Day Years [...] Sex Assigned at Female 03/17/2024 8:21 AM ICU SPECIALIST Legal Sex Female 7:14 PM CDT Gender Identity Not on file Sexual Orientation Not on file documented as of this encounter Plan of Treatment Not on file documented as of this encounter Visit Diagnoses Not on filedocumented in this encounter Additional Health Concerns Infection Onset Date Last Indicated Resolved Time COVID-19 Rule Out 03/03/2024 03/03/2024 03/03/2024 4:32 PM ICU SPECIALIST Influenza - Seasonal 03/03/2024 03/03/2024 025 12:32 AM ICU SPECIALIST COVID-19 Rule Out 03/17/2024 03/17/2024 03/17/2024 9:13 AM ICU SPECIALIST documented as of this encounter Care Teams Utilization Coordinator Relationship Specialty Start Date End Date Tonia Cross NP PCP - General NURSE PRACTITIONER 03/05/20 01/13/21 [place] [address] [place] [address] PCP - General FAMILY PRACTICE 01/14/21 10/04/23 [place] [address] [place] [address] PCP - General Nurse Practitioner Family 10/05/23 documented as of this encounter
--- OUTSIDE RECORDS SUMMARY | 2024-03-21 17:00 | XMS_ITS | Clinical Summary ---
Author Organization [facility] Address [address] [facility] [place] [address] Care Team Providers Care Computer Systems Technician Name Role Phone Mary Alice Garcia MD Primary Care Provider Source Comments [facility],non-owned Affiliates and Associated Physician Practices is amultiple site organization consisting of ambulatory clinics and hospital sitesin [place], [place], [place] and [place]. This disclosure is being madepursuant to the Care Everywhere program and may not contain all information available regarding this patient. Last updated 17.[facility] Allergies No known active allergies Medications * Be aware that medications may not be up to date on this document. Alwaysverify current medications with the patient. Medication Sig Dispensed Refills Start Date End Date Status MV-Min-Fe Fum-FA-DHA ( 1 PO) Active escitalopram (LEXAPRO) 10 MG tablet TAKE ONE-HALF TABLET BY MOUTH DAILY FOR 2 WEEKS. IF TOLERATING WITHOUT SIDE EFFECTS, INCREASE TO ONE TABLET BY MOUTH DAILY. 08/20/2018 Active Active Problems Problem Noted Date Diagnosed Date PMS (premenstrual syndrome) 01/21/2016 Dysmenorrhea 01/21/2016 SVT (supraventricular tachycardia) 07/21/2010 Resolved Problems Problem Noted Date Diagnosed Date Resolved Date Rubella non-immune status, antepartum 10/19/2017 01/30/2018 Overview (10/19/2017): Will need rubella while in hospital Immunizations Name Administration Dates Next Due DTaP VACCINE IM (6wk-6yrs) 07/29/2001,,1996,1996,08/14 HEP B VACCINE, PED/ADOL 1996,1996, HIB BOOSTER 12/16/1997,1996,1996 ,1996 MMR 07/29/2001,07/02/1997 POLIO OPV 07/29/2001, 8,1996,1996,08/14 VARICELLA 06/04/2001 Family History Relation Name Status Comments Father Alive Mother [...] Mass Index 30.18 07/07/2018 5:00 PM CDT Plan of Treatment Health Maintenance Due Date Last Done Comments DTAP/TDAP/TD VACCINES (6 - Tdap) 06/14/2007 07/29/2001, 12/16/1997, 1996, Additional history exists PAP SMEAR 10/17/2020 10/17/2017 COVID-19 VACCINE ( season) 2023 INFLUENZA VACCINE (#1) 2023 DEPRESSION SCREENING 02/13/2024 ZOSTER VACCINE (1 of 2) 2046 HEPATITIS B VACCINE Completed 1996, 1996, 1996 HIB VACCINE Completed 12/16/1997, 06/1996, 1996, Additional history exists HEPATITIS C SCREENING Completed 01/19/2016 HIV SCREENING Completed 10/17/2017, 01/19/2016 HPV VACCINE Aged Out No longer eligi ble based on patient's age to complete this topic MENINGOCOCCAL (Group B) VACCINE Aged Out No longer eligible based on patient's age to complete this topic MENINGOCOCCAL VACCINE Aged Out No hafsa aristides eligible based on patient's age to complete this topic PNEUMOCOCCAL VACCINE Aged Out No long er eligible based on patient's age to complete this topic Procedures Procedure Name Priority Date/Time Associated Diagnosis Comments HIV-1 HIV-2 ANTIGEN/ANTIBODY W RFLX Routine 10/17/2017 3:24 PM CDT Encounter for supervision of normal first in first trimester (HCC) 6 weeks gestation of (HCC) Screening examination for venereal disease PAP IG LB CT+NG+TV RFLX HPV ASCU Routine 10/17/2017 2:38 PM CDT Encounter for supervision of normal first in first trimester (HCC) 6 weeks gestation of (HCC) Screening examination for venereal disease HEPATITIS SCREEN ACUTE Routine 01/19/2016 11:01 AM TOWNSHIP SUPERVISOR Well woman exam with routine gynecological exam Screening examination for venereal disease from Last 3 Months or Most Recently Relevant to Health Maintenance Results * HIV-1 HIV-2 ANTIGEN/ANTIBODY W RFLX (10/17/2017 3:24 PM CDT) HIV Screen 4th Generation w Reflex Non Reactive Non Reactive [facility] INSURANCE BILL Blood BLOOD SPECIMEN / Unknown 10/17/2017 3:24 PM CDT 10/17/2017 Narrative Resulting Agency Comment [facility] [address] [facility] [phone] Aleksandra Jenkins DO LAB - SEROLOGY ORDER SEGUNDO [facility] INSURANCE BILL [address] [place] [address] * PAP IG LB CT+NG+TV RFLX HPV ASCU (10/17/2017 2:38 PM CDT) Diagnosis [facility] INSURANCE BILL Comment: NEGATIVE FOR INTRAEPITHELIAL LESION AND MALIGNANCY. THIS SPECIMEN WAS RESCREENED PART OF OUR EVENTS TRAFFIC CONTROLLER PROGRAM. Specimen Adequacy [facility] INSURANCE BILL Comment: Satisfactory for evaluation. Endocervical and/or squamous metaplastic cells (endocervical component) are present. Clinician Provided ICD10 [facility] INSURANCE BILL Comment: Z34.01 Z3A.01 Z11.3 Performed by [facility] INSURANCE BILL Comment:Honey Shukla, Cytot echnologist (ASCP) QC Reviewed by [facility] INSURANCE BILL Comment:Babita Stone, Supervisory Medical Staff Assistant (ASCP) Comment . [facility] INSURANCE BILL Note [...] of containers..01 ThinPrep Vial Resulting Agency Comment [facility] [place] Justin DavilaFracisco [phone] Aleksandra Jenkins DO LAB - PATHOLOGY/CYTO LOGY ORDERABLES [facility] INSURANCE BILL [address] [place] [address] * HEPATITIS SCREEN ACUTE (01/19/2016 11:01 AM TOWNSHIP SUPERVISOR) Hepatitis A Virus Antibody IgM Negative Negative [...] with a HCV Nucleic Acid Amplification test (828510). Blood BLOOD SPECIMEN / Unknown 01/19/2016 11:01 AM TOWNSHIP SUPERVISOR 01/19/2016 Narrative Resulting Agency Comment [facility] [address] [facility] [phone] Aleksandra Jenkins DO LAB - CHEMISTRY AMBER CHEN [facility] ACCOUNT BILL [address] [place] [address] from Last 3 Months or Most Recently Relevant to Health Maintenance Care Teams Computer Systems Technician Relationship Specialty Start Date End Date Mary Alice Garcia MD [address] [place] [address] PCP - General 07/21/10
--- OUTSIDE RECORDS SUMMARY | 2024-03-21 17:00 | XMS_ITS | Referral Summary ---
Author Organization [facility] Address [address] [facility] [place] [address] Care Team Providers Care Director Cardiovascular Name Role Phone Mary Alice Garcia MD Primary Care Provider Source Comments [facility],non-owned Affiliates and Associated Physician Practices is amultiple site organization consisting of ambulatory clinics and hospital sitesin [place], [place], [place] and [place]. This disclosure is being madepursuant to the Care Everywhere program and may not contain all information available regarding this patient. Last updated 17.[facility] Allergies No known active allergies Medications * [...] 07/29/2001,07/02/1997 POLIO OPV 07/29/2001, 8,1996,1996,08/14 VARICELLA 06/04/2001 Social History Tobacco Use Types Packs/Day Years [...] 07/07/2018 5:00 PM CDT Plan of Treatment Not on file Procedures Procedure Name Priority Date/Time Associated Diagnosis [...] HEPATITIS SCREEN ACUTE Routine 01/19/2016 11:01 AM BUFFERER Well woman exam with routine gynecological exam Screening examination for venereal disease from Last 3 Months or Most Recently Relevant to Health Maintenance Results * HIV-1 HIV-2 ANTIGEN/ANTIBODY W RFLX (10/17/2017 3:24 PM CDT) HIV Screen 4th Generation w Reflex Non Reactive Non Reactive [facility] INSURANCE BILL Blood BLOOD SPECIMEN / Unknown 10/17/2017 3:24 PM CDT 10/17/2017 Narrative Resulting Agency Comment [facility] [address] [facility] [phone] Aleksandra Jenkins DO LAB - SEROLOGY ORDER SEGUNDO [facility] INSURANCE BILL [address] [place] [address] * PAP IG LB CT+NG+TV RFLX HPV ASCU (10/17/2017 2:38 PM CDT) Diagnosis [facility] INSURANCE BILL Comment: NEGATIVE FOR INTRAEPITHELIAL LESION AND MALIGNANCY. THIS SPECIMEN WAS RESCREENED PART OF OUR VARNISHING MACHINE OPERATOR PROGRAM. Specimen Adequacy [facility] INSURANCE BILL Comment: Satisfactory for evaluation. Endocervical and/or squamous metaplastic cells (endocervical component) are present. Clinician Provided ICD10 [facility] INSURANCE BILL Comment: Z34.01 Z3A.01 Z11.3 Performed by [facility] INSURANCE BILL Comment:Honey Shukla, Cytot echnologist (ASCP) QC Reviewed by [facility] INSURANCE BILL Comment:Babita Stone, Supervisory Speech Language Pathologist Prn (ASCP) Comment . [facility] INSURANCE BILL Note [...] use of an image guided system. Note [facility] INSURANCE BILL Comment: The HPV DNA reflex [...] of containers..01 ThinPrep Vial Resulting Agency Comment [facility] [place] [phone] Aleksandra Jenkins DO LAB - PATHOLOGY/CYTO LOGY ORDERABLES Performing Organization Address City/[facility]/ZIP Co de Phone Number [facility] INSURANCE BILL [address] [place] [address] * HEPATITIS SCREEN ACUTE (01/19/2016 11:01 AM BUFFERER) Hepatitis A Virus Antibody IgM Negative Negative [...] with a HCV Nucleic Acid Amplification test ([id number]). Blood BLOOD SPECIMEN / Unknown 01/19/2016 11:01 AM BUFFERER 01/19/2016 Narrative Resulting Agency [facility] [address] [facility] [phone] Aleksandra Jenkins DO LAB - CHEMISTRY ORDE RABLES Performing Organization Address City/[facility]/ZIP Co de Phone Number [facility] ACCOUNT BILL [address] [place] [address] from Last 3 Months or Most Recently Relevant to Health Maintenance Care Teams Director Cardiovascular Relationship Specialty Start Date End Date Mary Alice Garcia MD [address] [place] [phone] PCP - General 07/21/10
--- OUTSIDE RECORDS SUMMARY | 2024-03-21 17:00 | XMS_ITS | Encounter Summary ---
Author Organization [facility] Address [address] [place] [address] Care Team Providers Care Scientific Informatics Project Leader Name Role Phone Sandra Zuniga MD Primary Care Provider [phone] Phuong Dunne NP Primary Care Provider + [phone] Encounter Details Date Type Department Care Team (Late st Contact Info) Description 02/09/2021 [employer] Message Enc [facility] Family & Internal Medicine [facility] [id number] [place] [phone] Sandra Zuniga MD [address] [place] [address]. [address] [place] [address] At Home COVID Test Social History Tobacco Use Types Packs/Day Years [...] Sex Assigned at Female 03/17/2024 8:21 AM NATIONAL FLATBED TRUCK DRIVER Legal Sex Female 7:14 PM CDT Gender Identity Not on file Sexual Orientation Not on file COVID-19 Exposure Response Date Recorded In the last month, have you been in contact with someone who was confirmed or suspected to have Coronavirus / COVID-19? No / Unsure 02/09/2021 12:41 PM NATIONAL FLATBED TRUCK DRIVER documented as of this encounter Plan of Treatment Not on file documented as of this encounter Visit Diagnoses Not on filedocumented in this encounter Additional Health Concerns Infection Onset Date Last Indicated Resolved Time COVID-19 Rule Out 03/03/2024 03/03/2024 03/03/2024 4:32 PM NATIONAL FLATBED TRUCK DRIVER Influenza - Seasonal 03/03/2024 03/03/2024 025 12:32 AM NATIONAL FLATBED TRUCK DRIVER COVID-19 Rule Out 03/17/2024 03/17/2024 03/17/2024 9:13 AM NATIONAL FLATBED TRUCK DRIVER documented as of this encounter Care Teams Scientific Informatics Project Leader Relationship Specialty [place] [address] [place] [address] PCP - General FAMILY PRACTICE 01/14/21 10/04/23 [place] [address] [place] [address] PCP - General Nurse Practitioner Family 10/05/23 documented as of this encounter
--- OUTSIDE RECORDS SUMMARY | 2024-03-21 17:00 | XMS_ITS | Encounter Summary ---
Author Organization [facility] Address [address] [place] [address] Care Team Providers Care Branch Sales And Service Representative Name Role Phone Phuong Dunne RESOLUTION ANALYST Primary Care Provider + [phone] Reason for Visit * Reason Comments URI/ENT Symptoms Pt c/o JAQUAN ear pain with right worse, sinus drainage and congestion, cough. Pt symptoms started Sat and is just getting over the flu from 03/03 Encounter Details Date Type Department Care Team (Late st Contact Info) Description 03/17/2024 10:20 AM PROFESSOR OF FORESTRY Office Visit [facility] [id number] [place] [phone] [place] [address] [place] [address] URI/ENT Symptoms (Pt c/o JAQUAN ear pain with right worse, sinus drainage and congestion, cough. Pt symptoms started Sat and is just getting over the flu from 03/03) Social History Tobacco Use Types Packs/Day Years [...] Sex Assigned at Female 03/17/2024 8:21 AM PROFESSOR OF FORESTRY Legal Sex Female 7:14 PM CDT Gender Identity Not on file Sexual Orientation Not on file documented as of this encounter Last Filed Vital Signs Vital Sign Reading Time Taken Comments Blood Pressure 125/89 03/17/2024 8:45 AM PROFESSOR OF FORESTRY Pulse 96 03/17/2024 8:45 AM PROFESSOR OF FORESTRY Temperature 36.9 C (98.5 F) 03/17/2024 8:45 AM PROFESSOR OF FORESTRY Respiratory Rate 18 03/17/2024 8:45 AM PROFESSOR OF FORESTRY Oxygen Saturation 100% 03/17/2024 8:45 AM PROFESSOR OF FORESTRY Inhaled Oxygen Concentration - - Weight 93 kg (205 lb) 03/17/2024 8:45 AM PROFESSOR OF FORESTRY Height 157.5 cm (5' 2 ) 03/17/2024 8:45 AM PROFESSOR OF FORESTRY Body Mass Index 37.49 03/17/2024 8:45 AM PROFESSOR OF FORESTRY documented in this encounter Progress Notes * DINAH Purdy - 03/17/2024 10:20 AM CST Subjective Reason for Visit: URI/ENT Symptoms (Pt c/o JAQUAN ear pain with right worse, sinus drainage and congestion, cough. Pt symptoms started Sat and is just getting over the flu from 03/03) History of Present Illness: 28-year-old female complains of sore throat bilateral ear pain sinus congestion for 2 days. Denies fever chills nausea vomiting or diarrhea. Denies cough or shortness of breath. URI/ENT Symptoms ROS: Review of Systems All other systems reviewed and are negative. Medications: Current Outpatient Medications: albuterol sulfate HFA 108 (90 Base) MCG/ACT inhaler, Inhale 2 puffs into the lungs every 4 (four) hours as needed., Disp: , Rfl: escitalopram (LEXAPRO) 10 MG tablet, Take 1 tablet (10 mg total) by mouth daily., Disp: 90 tablet, Rfl: 3 fluticasone propionate (FLONASE) 50 MCG/ACT nasal spray, 2 sprays by Nasal route daily for 30 days.2 puffs each nostril twice a day for 3 days, then 2 puffs each nostril daily, Disp: 18.2 mL, Rfl: 1 propranolol (INDERAL) 20 MG tablet, Take 1 tablet (20 mg total) by mouth 3 (three) times daily., Disp: 90 tablet, Rfl: 0 valACYclovir (VALTREX) 1 g tablet, , Disp: , Rfl: No Known Allergies Past Medical History: Diagnosis Date Anxiety HSV-2 (herpes simplex virus 2) infection Occipital neuralgia Vision abnormalities Wears Glasses Past Surgical History: Procedure Laterality Date HC CATHETER ABLATION NON-CARDIAC ENDO T1 N/A KNEE SURGERY Right Per patient, had a bone on top of patella, shaved to remove. TONSILLECTOMY Social History Socioeconomic History Marital status: Single Tobacco Use Smoking status: Never Smokeless tobacco: Never Vaping Use Vaping status: Never Used Substance and Sexual Activity Alcohol use: Yes Comment: A few drinks every few months Drug use: Not Currently Sexual activity: Not Currently Partners: Male control/protection: None Social History Narrative Lives with daughter (2 yo) 07/29/2020 E-Cigarettes Questions Responses E-Cigarette Use Never User E-cigarette/Vaping Substances Questions Responses Nicotine No THC No CBD No Flavoring No E-cigarette/Vaping Devices Questions Responses Disposable No Pre-filled or Refillable Cartridge No Refillable Tank No Pre-filled Pod No Family History Problem Relation Name Age of Onset Neurological Disease Mother Occipital Neuralgia Hypertension Father Jono Alcohol Abuse Father Jono Mental Health Father Jono Family Status Relation Name Status Mother Alive Father Jono Alive No partnership data on file Objective Physical Exam Vitals reviewed. Constitutional: Appearance: Normal appearance. HENT: Right Ear: Tympanic membrane normal. Left Ear: Tympanic membrane normal. Nose: Nose normal. Mouth/Throat: Mucous membranes are moist. Oropharynx is clear. Eyes: Pupils: Pupils are equal, round, and reactive to light. Cardiovascular: Rate and Rhythm: Normal rate and regular rhythm. Pulses: Normal pulses. Heart sounds: Normal heart sounds. No murmur heard. No gallop. Pulmonary: Effort: Pulmonary effort is normal. No respiratory distress. Breath sounds: Normal breath sounds. No wheezing or rales. Musculoskeletal: Cervical back: Normal range of motion. Skin: General: Skin is warm and dry. Capillary Refill: Capillary refill takes less than 2 seconds. Neurological: Mental Status: She is alert. Psychiatric: Mood and Affect: Mood normal. Behavior: Behavior normal. Thought Content: Thought content normal. Judgment: Judgment normal. Filed Vitals: 03/17/24 0845 BP: 125/89 Pulse: 96 Resp: 18 Temp: 98.5 ??F (36.9 ??C) TempSrc: Core SpO2: 100% Weight: 93 kg (205 lb) Height: 1.575 m (5' 2 ) Results for orders placed or performed in visit on 03/17/24 STREP A RAPID Specimen: THROAT Result Value Ref Range RAPID STREP TEST NEGATIVE NEGATIVE Internal Control: VALID VALID CORONAVIRUS (COVID-19) INFLUENZA A & B ANTIGEN IA PANEL Specimen: NASAL Result Value Ref Range CORONAVIRUS ANTIGEN IA NEGATIVE NEGATIVE INFLUENZA A NEGATIVE NEGATIVE INFLUENZA B NEGATIVE NEGATIVE Internal Control: VALID VALID Diagnoses/Impression: 1. Sore throat STREP A RAPID CULTURE STREP A 2. Suspected COVID-19 virus infection CORONAVIRUS (COVID-19) INFLUENZA A & B ANTIGEN IA PANEL 3. Viral URI fluticasone propionate (FLONASE) 50 MCG/ACT nasal spray Recommendations and Plan: [id number]-rla-[id number] medications as directed warm salt water gargles, Cepacol lozenges as needed follow-up as needed Orders Placed This Encounter fluticasone propionate (FLONASE) 50 MCG/ACT nasal spray STREP A RAPID CORONAVIRUS (COVID-19) INFLUENZA A & B ANTIGEN IA PANEL CULTURE STREP A Reviewed and updated this visit by provider: DINAH PURDY Referring Provider: No ref. provider found PCP: Phuong Dunne NP Cosigned by Nader Kaur MD at 03/17/2024 1:06 PM PROFESSOR OF FORESTRY ESSOR OF FORESTRY ESSOR OF FORESTRY documented in this encounter Plan of Treatment Not on file documented as of this encounter Procedures Procedure Name Priority Date/Time Associated Diagnosis Comments CULTURE STREP A Routine 03/17/2024 9:05 AM PROFESSOR OF FORESTRY Sore throat CORONAVIRUS (COVID-19) INFLUENZA A & B ANTIGEN IA PANEL Routine 03/17/2024 Suspected COVID-19 virus infection STREP A RAPID Routine 03/17/2024 Sore throat documented in this encounter Results * CULTURE STREP A (03/17/2024 9:05 AM PROFESSOR OF FORESTRY) [facility] THROAT CULTURE GROUP A STREP [employer] [facility] [place] Comment: CULTURE, THROAT, SPECIAL W/GRP A STREP SUSCEPT. Micro Number: [id number] Test Status: Final Specimen Source: Not given Specimen Quality: Adequate Result: No oropharyngeal pathogens recovered. STRUCTURE OF ANTERIOR PORTION OF NECK / Unknown 03/17/2024 9:05 AM PROFESSOR OF FORESTRY 03/18/2024 1:42 AM PROFESSOR OF FORESTRY Narrative Resulting Agency Comment Performing Organization Information: Site ID: Name: [facility] Address: [address] [place] [address] Director: Arline Gonzalez Adelso [facility] - GENERAL ORDERAB LES Final Result Packet [employer] - [address] [phone], * CORONAVIRUS (COVID-19) INFLUENZA A & B ANTIGEN IA PANEL (03/17/2024) CORONAVIRUS ANTIGEN IA NEGATIVE NEGATIVE [id number], [place] INFLUENZA A NEGATIVE NEGATIVE [id number], [place] INFLUENZA B NEGATIVE NEGATIVE [id number], [place] Internal Control: VALID VALID [id number], [place] NASAL STRUCTURE / Unknown 03/17/2024 Adelso [facility] - GENERAL ORDERAB LES Final Result [id number], [place] [address] [place] [address], [place] [phone] * STREP A RAPID (03/17/2024) RAPID STREP TEST NEGATIVE NEGATIVE [id number], [place] Internal Control: VALID VALID [id number], [place] STRUCTURE OF ANTERIOR PORTION OF NECK / Unknown 03/17/2024 Ad[facility]so [facility] - GENERAL ORDERAB LES Final Result [id number] [place] [address] [place] [address], documented in this encounter Visit Diagnoses Diagnosis Sore throat- Primary Acute pharyngitis Suspected COVID-19 virus infection Viral URI Acute upper respiratory infections of unspecified site documented in this encounter Additional Health Concerns Assessment Noted Time PHQ-9 Depression Total Score: 7 09/05/19 23 3:09 PM CDT documented as of this encounter Care Teams Branch Sales And Service Representative Relationship Specialty [place] [address] [place] [address] PCP - General Nurse Practitioner Family 10/05/23 documented as of this encounter
[2024-03-21 17:09] VITALS: BP 112/73; PULSE 81; RESP 18; TEMP 36.4; O2SAT 100
--- NOTE | 2024-03-21 18:48 | ED.GENADULT ---
HPI - General Adult General Chief complaint: Upper Respiratory Infection Stated complaint: sinus, ear, throat and pain Source: patient Mode of arrival: ambulatory Limitations: no limitations History of Present Illness HPI narrative: Patient presents for evaluation of sick symptoms. Symptom onset 1 week ago. She reports bilateral ear pain, sore throat, cough, cervical lymphadenopathy, sinus congestion, and thick yellow nasal drainage. She was seen here last month and was given prescription for doxycycline and prednisone. Her primary care provider advised that she stop the doxycycline the next day. Her cough persisted. She then had influenza in the middle of February. She was not given Tamiflu based upon the time of symptom onset. She states her cough has persisted. No fever, chills, nausea, vomiting, or diarrhea. She does not smoke. Related Data Home Medications ?Medication ?Instructions ?Recorded ?Confirmed ?Last Taken ?Type acyclovir 400 mg tablet 400 mg PO BID 09/24/22 09/29/22 Unknown History escitalopram oxalate 10 mg tablet 2.5 mg PO DAILY 09/24/22 09/29/22 Unknown History Allergies Allergy/AdvReac Type Severity Reaction Status Date / Time No Known Allergies Allergy Verified 03/21/24 17:08 Review of Systems Review of Systems: CONSTITUTIONAL: Denies fever, chills, or sweats. EYES: Denies visual changes, redness, or discharge. ENT: Reports sinus congestion, thick yellow drainage from the nares, sore throat, bilateral otalgia, and cervical lymphadenopathy CARDIOVASCULAR: Denies chest pain, palpitations, or edema. RESPIRATORY: Reports cough. Denies shortness of breath. GASTROINTESTINAL: Denies abdominal pain, nausea, vomiting, or diarrhea. GENITOURINARY: Denies dysuria or hematuria. SKIN: Denies rash or itching. MUSCULOSKELETAL: Denies back pain, joint pain, or myalgia. NEUROLOGIC: Denies headache, numbness, dizziness, or weakness. PSYCHIATRIC: Denies anxiety or depression. [facility], [facility] Past Medical History Medical History Depression Herpes simplex Surgical History Surgical History No pertinent past surgical history Family History Family History Mother Family history non-contributory Social History Social History (Updated 03/21/24 @ 18:52 by Ezequiel Davidson, [facility], ) Smoking status: Never smoker Substance use: never Living arrangements: with family Gender identity (if verbalized by the patient): Female Sexual Orientation (if Verbalized by the Patient): Straight or Heterosexual Spiritual care concerns: No Exam Narrative: GENERAL: Well-appearing, well-nourished, and in no acute distress. HEAD: Normocephalic, atraumatic. EYES: PERRLA and EOMI. ENT: thick yellow nasal drainage present. Mucous membranes moist. Oropharynx without tonsillar hypertrophy exudate or other lesions. Bilateral TMs pearly murillo nonbulging NECK: Supple. No adenopathy or masses. No carotid bruits or JVD CHEST: Clear to auscultation. No respiratory distress. No wheezes rales or rhonchi HEART: Regular rate and rhythm. No murmur heard. Normal peripheral pulses. ABDOMEN: Soft, nontender, nondistended, normal active bowel sounds. EXTREMITIES: Normal range of motion. No edema. SKIN: Warm, dry, no rash. NEURO: No focal deficits. Alert and oriented x3. PSYCH: Normal mood and affect. Course Course Emergency Course: This is a 28-year-old female who presented for evaluation of sick symptoms. Chest x-ray was normal. She meets criteria for bacterial sinusitis based upon the presence of mucopurulent discharge. Will treat with Augmentin. Follow-up with primary provider. Go to the ER for worsening symptoms. Patient in agreement with plan of care. Level of Care: Express Care Visit Vital Signs Vital signs: Vital Signs Temperature 36.4 C 03/21/24 17:09 Pulse Rate 81 03/21/24 17:09 Respiratory Rate 18 03/21/24 17:09 Blood Pressure 112/73 03/21/24 17:09 Pulse Oximetry 100 03/21/24 17:09 Oxygen Delivery Room Air 03/21/24 17:09 Temperature 36.4 C 03/21/24 17:09 Pulse Rate 81 03/21/24 17:09 Respiratory Rate 18 03/21/24 17:09 Blood Pressure 112/73 03/21/24 17:09 Pulse Oximetry 100 03/21/24 17:09 Oxygen Delivery Room Air 03/21/24 17:09 Medical Decision Making Vital Signs Vital Signs: Vital Signs Temperature 36.4 C 03/21/24 17:09 Pulse Rate 81 03/21/24 17:09 Respiratory Rate 18 03/21/24 17:09 Blood Pressure 112/73 03/21/24 17:09 Pulse Oximetry 100 03/21/24 17:09 Oxygen Delivery Room Air 03/21/24 17:09 Temperature 36.4 C 03/21/24 17:09 Pulse Rate 81 03/21/24 17:09 Respiratory Rate 18 03/21/24 17:09 Blood Pressure 112/73 03/21/24 17:09 Pulse Oximetry 100 03/21/24 17:09 Oxygen Delivery Room Air 03/21/24 17:09 Imaging Data Radiologist's impression: CHEST RADIOGRAPH, PA AND LATERAL CLINICAL HISTORY: cough,productive . COMPARISON: None available TECHNIQUE: PA and lateral views of the chest. FINDINGS The cardiomediastinal silhouette is unremarkable. The lungs are clear. Visualized osseous structures and soft tissues are unremarkable. IMPRESSION: No focal infiltrate or effusion. Discharge Plan Discharge Clinical Impression: Bacterial sinusitis Patient Disposition: Home, Self-Care Condition: Stable Instructions: Antibiotic Form, Sinusitis (ED) Patient Language: Occitan Prescriptions: New amoxicillin-pot clavulanate 875-125 mg tablet 1 tablet PO Q12H Qty: 20 0RF No Action acyclovir 400 mg tablet 400 mg PO BID escitalopram oxalate 10 mg tablet 2.5 mg PO DAILY doxycycline hyclate 100 mg capsule 100 mg PO BID 7 Days Qty: 14 0RF prednisone 20 mg tablet 40 mg PO DAILY 5 Days Qty: 10 0RF albuterol sulfate 90 mcg/actuation HFA aerosol inhaler 2 puff inhalation Q4-6H PRN (Reason: shortness of breath or wheezing) 30 Days Qty: 8.5 0RF Follow-up/Referrals: Uzair,Phuong Blanton APRN [Primary Care Provider] - Time of Disposition: 18:47
== END 2024-03-21 18:51 | disposition home or self-care (01) ==
PROVIDERS: Emergency Provider Nurse Practitioner; PCP Nurse Practitioner Family
DX: J32.9 Chronic sinusitis, unspecified (principal); F32.A Depression, unspecified
CPT/HCPCS: 71046; 99213; G0463